=== PATIENT | female | born 1980 | race African-American/Black ===

== ENCOUNTER 2016-08-05 10:37 | Emergency (ER) | payer OTHER ==
[~2016-08-05] VITALS: Ht 175.3 cm; Wt 66.7 kg
[~2016-08-05 10:37] MED LIST: CEPH-264 PO; FLUC150T PO
[2016-08-05] MEDS ORDERED: LIDO:MAALOX:DONNATAL 1:1:1 15 ML SINGLE DOSE SWSW ONE (11:45)
[2016-08-05] MEDS ORDERED: ONDANSETRON PF 4 MG/2 ML VIAL. IV ONE (11:45)
[2016-08-05] MEDS ORDERED: IV NORMAL SALINE 1000ML BAG 1,000 ML IV ONE (11:45)
[2016-08-05] MEDS ORDERED: FAMOTIDINE 20 MG/2 ML VIAL IVP ONE (11:45)
[2016-08-05 11:58] LABS: BASO % 1 % (0-3); EOS % 4 % (0-3); HEMATOCRIT 37.4 % (36.0-47.0); HEMOGLOBIN 12.9 g/dL (12.0-15.5); LYMPH # 1.2 x10^3/uL (1.0-4.8); LYMPH % 31 % (24-48); MEAN CORPUSCULAR HEMOGLOBIN 31 pg (25-35); MEAN CORPUSCULAR HGB CONC 35 g/dL (31-37); MEAN CORPUSCULAR VOLUME 89 fL (79-100); MONO % 13 % (0-9); NEUT % 51 % (31-73); PLATELET COUNT 313 x10^3/uL (140-400); RED BLOOD COUNT 4.19 x10^6/uL (3.50-5.40); RED CELL DISTRIBUTION WIDTH 13.2 % (11.5-14.5); WHITE BLOOD COUNT 3.8 x10^3/uL (4.0-11.0)
[2016-08-05 11:59] LABS: CALCIUM 9.2 mg/dL (8.5-10.1); CREATININE 0.8 mg/dL (0.6-1.0); GFR 98.2; POTASSIUM 3.7 mmol/L (3.5-5.1)
[2016-08-05 12:04] LABS: BILIRUBIN,URINE NEGATIVE (NEG); GLUCOSE,URINE NEGATIVE (NEG); NITRITE,URINE NEGATIVE (NEG); UROBILINOGEN,URINE 0.2 mg/dL (0.2 mg/dL)
[2016-08-05 12:05] LABS: ALBUMIN 3.9 g/dL (3.4-5.0); ALBUMIN/GLOBULIN RATIO 0.9 (1.0-1.7); TOTAL BILIRUBIN 0.6 mg/dL (0.2-1.0); TOTAL PROTEIN 8.3 g/dL (6.4-8.2)
[2016-08-05 12:05] LABS: NEG OBC UR NEG; POS OBC UR POS
[2016-08-05 12:15] LABS: PROTEIN,URINE NEGATIVE (NEG-TRACE)
[2016-08-05 12:16] LABS: BACTERIA,URINE 0 /HPF (0-FEW); SQUAMOUS EPITHELIAL CELL,UR MOD /LPF; WBC,URINE OCC /HPF (0-4)
--- NOTE | 2016-08-05 12:50 | ACF ---
Admission Forms Criteria Admission Criteria Met?: Yes ROSA PEREZ Aug 05, 2016 12:50
[2016-08-05 14:15] VITALS: BP 94/52
[2016-08-05] MEDS ORDERED: ONDA4TAB10 SL (14:31)
[2016-08-05] MEDS ORDERED: ESOM40CA PO (14:31)
--- NOTE | 2016-08-05 14:31 | PHYS DOC ---
Past Medical History Past Medical History: GERD Past Surgical History: Tonsillectomy Alcohol Use: Occasionally Drug Use: None Adult General Chief Complaint Chief Complaint: ABDOMINAL PAIN HPI HPI Patient is a 36 year old female with history of acid reflex presents today with midepigastric abdominal pain chronic in nature but got worse in the last 24 hours. Patient is also complaining of nausea and feeling gassy. Patient denies any constipation. She states she took Nexium and Prevacid with no relief. She states she used to follow-up with GI but has not seen a GI doctor for a long time. Patient denies any chance she is constipated. Denies any chance she is . Denies any urgency frequency or dysuria. Review of Systems Review of Systems Constitutional: Denies fever or chills [] Eyes: Denies change in visual acuity, redness, or eye pain [] HENT: Denies nasal congestion or sore throat [] Respiratory: Denies cough or shortness of breath [] Cardiovascular: No additional information not addressed in HPI [] GI: Midepigastric abdominal pain nausea,] : See history of present illness Musculoskeletal: Denies back pain or joint pain [] Integument: Denies rash or skin lesions [] Neurologic: Denies headache, focal weakness or sensory changes [] Endocrine: Denies polyuria or polydipsia [] Current Medications Current Medications Current Medications Medications (Trade) Dose Ordered Sig/Mejia Start Time Stop Time Status Last Admin Dose Admin Famotidine (Pepcid) 20 mg 1X ONCE 08/05/16 11:45 08/05/16 11:48 DC 08/05/16 12:21 20 MG Multi-Ingredient Mouthwash/Gargle (Gi Cocktail Single Dose) 15 ml 1X ONCE 08/05/16 11:45 08/05/16 11:48 DC 08/05/16 12:22 15 ML Ondansetron HCl 4 mg 4 mg 1X ONCE 08/05/16 11:45 08/05/16 11:48 DC 08/05/16 12:22 4 MG Sodium Chloride (Iv Sodium Chloride 0.9% 1000ml Bag) 1,000 ml @ 1,000 mls/hr 1X ONCE 08/05/16 11:45 08/05/16 12:44 DC 08/05/16 12:22 1,000 MLS/HR Allergies Allergies Allergies Coded Allergies Type Severity Reaction Last Updated Verified codeine Allergy Intermediate Itching. 02/26/16 Yes sulfamethoxazole Adverse Reaction Intermediate Causes Yeast infection. 02/26/16 Yes trimethoprim Adverse Reaction Intermediate Causes Yeast infection. 02/26/16 Yes Physical Exam Physical Exam Constitutional: Well developed, well nourished, no acute distress, non-toxic appearance. [] HENT: Normocephalic, atraumatic, bilateral external ears normal, oropharynx moist, no oral exudates, nose normal. [] Eyes: PERRLA, EOMI, conjunctiva normal, no discharge. [] Neck: Normal range of motion, no tenderness, supple, no stridor. [] Cardiovascular:Heart rate regular rhythm, no murmur [] Lungs & Thorax: Bilateral breath sounds clear to auscultation [] Abdomen: Bowel sounds normal, soft, mild mid epigastric tenderness, no masses, no pulsatile masses. No right upper, right lower quadrant tenderness on exam Skin: Warm, dry, no erythema, no rash. [] Back: No tenderness, no CVA tenderness. [] Extremities: No tenderness, no cyanosis, no clubbing, ROM intact, no edema. [] Neurologic: Alert and oriented X 3, normal motor function, normal sensory function, no focal deficits noted. [] Psychologic: Affect normal, judgement normal, mood normal. [] Current Patient Data Vital Signs Vital Signs Date Time Temp Pulse Resp B/P Pulse Ox O2 Delivery O2 Flow Rate FiO2 08/05/16 13:15 84 16 109/69 100 Room Air 08/05/16 11:15 98.2 98.2 Lab Values Laboratory Tests Test 08/05/16 11:20 08/05/16 11:30 Urine Collection Type Unknown Urine Color Yellow Urine Clarity Cloudy Urine pH 7.0 Urine Specific [place] 1.015 Urine Protein Negativemg/dL (NEG-TRACE) Urine Glucose (UA) Negativemg/dL (NEG) Urine Ketones (Stick) Negativemg/dL (NEG) Urine Blood Large (NEG) Urine Nitrite Negative (NEG) Urine Bilirubin Negative (NEG) Urine Urobilinogen Dipstick 0.2mg/dL (0.2 mg/dL) Urine Leukocyte Esterase Trace (NEG) Urine RBC 11-20/HPF (0-2) Urine WBC Occ/HPF (0-4) Urine Squamous Epithelial Cells Mod/LPF Urine Bacteria 0/HPF (0-FEW) Urine Mucus Mod/LPF Urine Test Negative (NEG) White Blood Count 3.8x10^3/uL (4.0-11.0) L Red Blood Count 4.19x10^6/uL (3.50-5.40) Hemoglobin 12.9g/dL (12.0-15.5) Hematocrit 37.4% (36.0-47.0) Mean Corpuscular Volume 89fL (79-100) Mean Corpuscular Hemoglobin 31pg (25-35) Mean Corpuscular Hemoglobin Concent 35g/dL (31-37) Red Cell Distribution Width 13.2% (11.5-14.5) Platelet Count 313x10^3/uL (140-400) Neutrophils (%) (Auto) 51% (31-73) Lymphocytes (%) (Auto) 31% (24-48) Monocytes (%) (Auto) 13% (0-9) H Eosinophils (%) (Auto) 4% (0-3) H Basophils (%) (Auto) 1% (0-3) Neutrophils # (Auto) 2.0x10^3uL (1.8-7.7) Lymphocytes # (Auto) 1.2x10^3/uL (1.0-4.8) Monocytes # (Auto) 0.5x10^3/uL (0.0-1.1) Eosinophils # (Auto) 0.2x10^3/uL (0.0-0.7) Basophils # (Auto) 0.0x10^3/uL (0.0-0.2) Sodium Level 139mmol/L (136-145) Potassium Level 3.7mmol/L (3.5-5.1) Chloride Level 103mmol/L (98-107) Carbon Dioxide Level 26mmol/L (21-32) Anion Gap 10 (6-14) Blood Urea Nitrogen 9mg/dL (7-20) Creatinine 0.8mg/dL (0.6-1.0) Estimated GFR (Cockcroft-Gault) 98.2 BUN/Creatinine Ratio 11 (6-20) Glucose Level 94mg/dL (70-99) Calcium Level 9.2mg/dL (8.5-10.1) Total Bilirubin 0.6mg/dL (0.2-1.0) Aspartate Amino Transferase (AST) 28U/L (15-37) Alanine Aminotransferase (ALT) 30U/L (14-59) Alkaline Phosphatase 136U/L (46-116) H Total Protein 8.3g/dL (6.4-8.2) H Albumin 3.9g/dL (3.4-5.0) Albumin/Globulin Ratio 0.9 (1.0-1.7) L Lipase 136U/L (73-393) Laboratory Tests 08/05/16 11:30 Laboratory Tests 08/05/16 11:30 EKG EKG [] Radiology/Procedures Radiology/Procedures [] Course & Med Decision Making Course & Med Decision Making Pertinent Labs and Imaging studies reviewed. (See chart for details) Patient is in the ED with exacerbation of chronic acid reflex with midepigastric abdominal pain. Negative urine hCG, UA negative for infection, CBC with a WBC of 3.8, CMP with alkaline phosphatase of 136. Patient is in no distress. She has history of acid reflex, I recommended she follows up with GI which i provided name and contact information for. Encouraged her to continue taking Nexium. Discharge her with Zofran as needed. She was given 1 L of IV fluid famotidine and GI cocktail in the ED with good relief of her symptoms. She was provided return precautions and discharged in stable condition. Dragon Disclaimer Dragon Disclaimer This electronic medical record was generated, in whole or in part, using a voice recognition dictation system. Departure Departure Impression: Primary Impression: GERD (gastroesophageal reflux disease) Disposition: 01 HOME, SELF-CARE Condition: STABLE Referrals: FERNANDO FLOWER MD (PCP) SHANNA MANCINI MD see him in one to three days Patient Instructions: Diet for Gastroesophageal Reflux Disease, Adult, Easy-to- Read Additional Instructions: You were seen for chronic acid reflex, continue taking Nexium. Take the provided nausea medicine as needed. Avoid fatty greasy foods. Avoid spicy foods. Follow-up with the provided GI doctor as soon as possible. Come back to the emergency room if symptoms worsen. Scripts Ondansetron (Zofran Odt)4 Mg Tab.rapdis1 Tab SL Q8HRS #15 TAB Prov:KUNAL FOX APRN 08/05/16 Esomeprazole Magnesium (Nexium Capsule)40 Mg Capsule.dr1 Cap PO DAILY #30 CAP Ref 5 Prov:KUNAL FOX DICE TABLE PERSON 08/05/16 Problem Qualifiers Primary Impression: GERD (gastroesophageal reflux disease) Esophagitis presence: esophagitis presence not specified Qualified Code: K21.9 - Gastro-esophageal reflux disease without esophagitis KUNAL FOX DICE TABLE PERSON Aug 05, 2016 14:31
== END 2016-08-05 14:45 | disposition home or self-care (01) ==
LOC: ER 10:37
DX: K21.9 Gastro-esophageal reflux disease without esophagitis (principal); Z88.1 Allergy status to other antibiotic agents; Z88.5 Allergy status to narcotic agent
CPT/HCPCS: 36415; 80053; 81001; 81025; 83690; 85027; 96361; 96374; 96375; 99284; J2405; J7030; S0028

== ENCOUNTER → 2016-10-07 | Outpatient (CLI) | payer OTHER ==
[~2016-10-07] MED LIST changes: +ESOM40CA PO; +HYDR-2678 PO; +ONDA4TAB10 SL
--- NOTE | 2016-10-07 16:43 | RAD ---
Indication: Palpable abnormality. Technique: Targeted ultrasound of the area of concern was performed. No comparison is available. Findings: Oval-shaped mass measures 16 x 16 x 6 mm in size at the area of concern. This is slightly more hyperechoic than the adjacent fat. It demonstrates no color flow. Impression: Oval-shaped mass at the area of concern, imaging characteristics most suggestive of lipoma.
[2016-10-14 10:32] VITALS: BP 104/70
== END | disposition home or self-care (01) ==
LOC: US 13:57
PROVIDERS: ATTEND Internal Medicine
DX: R22.1 Localized swelling, mass and lump, neck (principal)
CPT/HCPCS: 76536

== ENCOUNTER 2016-10-12 04:09 | Inpatient (IN) | payer OTHER ==
[~2016-10-12] VITALS: Ht 175.3 cm; Wt 65.8 kg
[~2016-10-12 04:09] MED LIST changes: -HYDR-2678 PO
[2016-10-12 05:10] LABS: BASO % 1 % (0-3); EOS % 5 % (0-3); HEMATOCRIT 37.4 % (36.0-47.0); HEMOGLOBIN 12.4 g/dL (12.0-15.5); LYMPH % 20 % (24-48); MEAN CORPUSCULAR HEMOGLOBIN 30 pg (25-35); MEAN CORPUSCULAR HGB CONC 33 g/dL (31-37); MEAN CORPUSCULAR VOLUME 89 fL (79-100); MONO % 10 % (0-9); NEUT % 65 % (31-73); PLATELET COUNT 360 x10^3/uL (140-400); RED BLOOD COUNT 4.19 x10^6/uL (3.50-5.40); RED CELL DISTRIBUTION WIDTH 13.1 % (11.5-14.5); WHITE BLOOD COUNT 5.2 x10^3/uL (4.0-11.0)
[2016-10-12 05:10] LABS: BILIRUBIN,URINE NEGATIVE (NEG); GLUCOSE,URINE NEGATIVE (NEG); NITRITE,URINE NEGATIVE (NEG); PROTEIN,URINE 30 mg/dL (NEG-TRACE)
[2016-10-12] MEDS: FENTANYL PF 100 MCG/2 ML VIAL. IV PRN ×3 (05:11→23:29)
[2016-10-12 05:23] LABS: CALCIUM 9.3 mg/dL (8.5-10.1); CREATININE 0.8 mg/dL (0.6-1.0); GFR 98.2; POTASSIUM 3.7 mmol/L (3.5-5.1)
[2016-10-12 05:25] LABS: BACTERIA,URINE MODERATE /HPF (0-FEW); SQUAMOUS EPITHELIAL CELL,UR MOD /LPF
[2016-10-12] MEDS ORDERED: IV NORMAL SALINE 1000ML BAG 1,000 ML IV SCH (05:30)
[2016-10-12] MEDS ORDERED: KETOROLAC TROMETHAMINE 30 MG/ML SYRINGE. IV ONE (05:30)
[2016-10-12] MEDS ORDERED: DIPHENHYDRAMINE 50 MG/ML VIAL IVP ONE (05:30)
[2016-10-12] MEDS ORDERED: ONDANSETRON PF 4 MG/2 ML VIAL. IV ONE (05:30)
--- NOTE | 2016-10-12 05:31 | RAD ---
Abdominal ultrasound right upper quadrant: Reason for examination: Right upper quadrant pain with elevated liver function test. No abnormalities seen in the pancreas. The inferior vena cava shows no abnormality. The liver is homogeneous without a focal lesion. Liver measures approximately 15.3 centimeters in greatest dimension. Gallbladder shows no cholelithiasis, sludge or wall thickening. Common bile duct is normal in caliber at 2.9 millimeters. The right kidney measures 12 x 4.5 centimeters in greatest dimensions and shows normal cortical medullary differentiation and no hydronephrosis or mass. Impression: No acute abnormality evident in the right upper quadrant of the abdomen. Electronically signed by: Rupal Moore MD (Oct 12, 2016 05:29:54)
[2016-10-12 05:32] LABS: ALBUMIN 3.4 g/dL (3.4-5.0); ALBUMIN/GLOBULIN RATIO 0.7 (1.0-1.7); TOTAL BILIRUBIN 0.8 mg/dL (0.2-1.0); TOTAL PROTEIN 8.5 g/dL (6.4-8.2)
[2016-10-12 05:49] LABS: BARBITURATES NEG (NEG); BENZODIAZEPINES NEG (NEG); CANNABINOIDS POS (NEG); COCAINE NEG (NEG); METHADONE NEG (NEG); OPIATES NEG (NEG); PHENCYCLIDINE NEG (NEG)
[2016-10-12 05:58] LABS: ETHANOL, URINE NEG (NEG)
--- NOTE | 2016-10-12 06:18 | EKG ---
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
[2016-10-12] MEDS ORDERED: ONDANSETRON PF 4 MG/2 ML VIAL. IV PRN (06:45)
[2016-10-12] MEDS ORDERED: ACETAMINOPHEN 325 MG TABLET. PO PRN (06:45)
--- NOTE | 2016-10-12 07:09 | RAD ---
Chest, 2 views, 10/12/2016: History: Shortness of breath The heart size is normal. The lungs are clear. There is no evidence of pleural fluid. IMPRESSION: No acute cardiopulmonary abnormality is detected.
--- NOTE | 2016-10-12 08:12 | ED.ADGEN ---
Past Medical History Past Medical History: GERD Past Surgical History: Tonsillectomy Alcohol Use: Occasionally Drug Use: None Adult General Chief Complaint Chief Complaint: SKIN PROBLEM HPI HPI Patient is a 36 year old woman, is treated GERD, who presents to the emergency department with multiple complaints. Patient was seen last week by her primary care provider, Dr. Flower, with a complaint of abdominal pain, and "welts", that developed on her arms and legs. Patient received blood work, and was given instructions to receive an outpatient "scan", of the right upper quadrant for evaluation of elevated LFTs. Patient states she's been expressing fever at home, chills, body aches, itching and red rash on forearms and legs, is concerned for sarcoid, which runs in her family, although she does not have laboratory results back at this time. Patient also states she is experiencing nausea and vomiting, and right upper quadrant abdominal pain which is been coming and going over the past several days. Patient states that she feels " just terrible". States that due to her symptoms worsening tonight, she could not wait to have the outpatient studies performed and to follow-up with her primary care provider. Patient's mother is present at bedside. No recent travel or surgery, no history of DVT or PE, no camping, or outdoor exposure, no insect or tick bites, no Review of Systems Review of Systems Constitutional: Generalized malaise, fever and chills. Eyes: Denies change in visual acuity. [] HENT: Denies nasal congestion or sore throat. [] Respiratory: Denies cough or shortness of breath. [] Cardiovascular: Denies chest pain or edema. [] GI: Thibodeaux requirement abdominal pain, nausea, vomiting, no bloody stools or diarrhea. : Denies dysuria. [] Musculoskeletal: Denies back pain or joint pain. [] Integument: Rash on forearms and legs. Neurologic: Denies headache, focal weakness or sensory changes. [] Endocrine: Denies polyuria or polydipsia. [] Lymphatic: Denies swollen glands. [] Psychiatric: Denies depression or anxiety. [] Current Medications Current Medications Current Medications Medications (Trade) Dose Ordered Sig/Mejia Start Time Stop Time Status Last Admin Dose Admin Diphenhydramine HCl (Benadryl) 25 mg 1X ONCE 10/12/16 05:30 10/12/16 05:31 DC 10/12/16 05:10 25 MG Fentanyl Citrate 25 mcg 25 mcg PRN Q15MIN PRN 10/12/16 05:00 10/13/16 04:59 10/12/16 05:11 25 MCG Ketorolac Tromethamine (Toradol) 10 mg 1X ONCE 10/12/16 05:30 10/12/16 05:31 DC 10/12/16 05:12 10 MG Ondansetron HCl (Zofran) 4 mg 1X ONCE 10/12/16 05:30 10/12/16 05:31 DC 10/12/16 05:10 4 MG Sodium Chloride (Iv Sodium Chloride 0.9% 1000ml Bag) 1,000 ml @ 1,000 mls/hr Q1H 10/12/16 05:30 10/12/16 06:29 DC 10/12/16 05:10 1,000 MLS/HR Allergies Allergies Allergies Coded Allergies Type Severity Reaction Last Updated Verified Penicillins Allergy Intermediate 10/12/16 Yes codeine Allergy Intermediate Itching. 02/26/16 Yes sulfamethoxazole Adverse Reaction Intermediate Causes Yeast infection. 02/26/16 Yes trimethoprim Adverse Reaction Intermediate Causes Yeast infection. 02/26/16 Yes Physical Exam Physical Exam Constitutional: Well developed, well nourished, no acute distress, non-toxic appearance. [] HENT: Normocephalic, atraumatic, bilateral external ears normal, oropharynx moist, no oral exudates, nose normal. [] Eyes: PERRLA, EOMI, conjunctiva normal, no discharge. [] Neck: Normal range of motion, no tenderness, supple, no stridor. [] Cardiovascular:Heart rate regular rhythm, no murmur , S1, S2, mildly tachycardic. No rubs or gallops. [] Lungs & Thorax: Bilateral breath sounds clear to auscultation, no wheezing, rhonchi, rales. No chest wall tenderness or crepitus. [] Abdomen: Bowel sounds normal, soft, tenderness to palpation in the right upper quadrant, no rebound, rigidity, no guarding, no masses, no pulsatile masses. [] Skin: Warm, dry, no erythema, patient with well-circumscribed neck or rash on the left forearm, healing rash on the calf. No target lesions, no abscess, no induration or swelling. No lymphangitis. Back: No tenderness, no CVA tenderness. [] Extremities: No tenderness, no cyanosis, no clubbing, ROM intact, no edema. [] Neurologic: Alert and oriented X 3, normal motor function, normal sensory function, no focal deficits noted. [] Psychologic: Affect normal, judgement normal, mood normal. [] Current Patient Data Vital Signs Vital Signs Date Time Temp Pulse Resp B/P Pulse Ox O2 Delivery O2 Flow Rate FiO2 10/12/16 06:04 127/82 10/12/16 05:11 16 Room Air 10/12/16 04:41 98.5 103 100 98.5 Lab Values Laboratory Tests Test 10/12/16 03:26 10/12/16 04:20 10/12/16 04:36 POC Urine HCG, Qualitative Hcg negative (Negative) Urine Collection Type Unknown Urine Color Yellow Urine Clarity Clear Urine pH 7.0 Urine Specific [place] 1.015 Urine Protein 30mg/dL (NEG-TRACE) Urine Glucose (UA) Negativemg/dL (NEG) Urine Ketones (Stick) Negativemg/dL (NEG) Urine Blood Moderate (NEG) Urine Nitrite Negative (NEG) Urine Bilirubin Negative (NEG) Urine Urobilinogen Dipstick 1.0mg/dL (0.2 mg/dL) Urine Leukocyte Esterase Negative (NEG) Urine RBC 6-10/HPF (0-2) Urine WBC 5-10/HPF (0-4) Urine Squamous Epithelial Cells Mod/LPF Urine Bacteria Moderate/HPF (0-FEW) Urine Hyaline Casts Few/HPF Urine Mucus Marked/LPF Urine Opiates Screen Neg (NEG) Urine Methadone Screen Neg (NEG) Urine Barbiturates Neg (NEG) Urine Phencyclidine Screen Neg (NEG) Urine Amphetamine/Methamphetamine Neg (NEG) Urine Benzodiazepines Screen Neg (NEG) Urine Cocaine Screen Neg (NEG) Urine Cannabinoids Screen Pos (NEG) Urine Ethyl Alcohol Neg (NEG) White Blood Count 5.2x10^3/uL (4.0-11.0) Red Blood Count 4.19x10^6/uL (3.50-5.40) Hemoglobin 12.4g/dL (12.0-15.5) Hematocrit 37.4% (36.0-47.0) Mean Corpuscular Volume 89fL (79-100) Mean Corpuscular Hemoglobin 30pg (25-35) Mean Corpuscular Hemoglobin Concent 33g/dL (31-37) Red Cell Distribution Width 13.1% (11.5-14.5) Platelet Count 360x10^3/uL (140-400) Neutrophils (%) (Auto) 65% (31-73) Lymphocytes (%) (Auto) 20% (24-48) L Monocytes (%) (Auto) 10% (0-9) H Eosinophils (%) (Auto) 5% (0-3) H Basophils (%) (Auto) 1% (0-3) Neutrophils # (Auto) 3.4x10^3uL (1.8-7.7) Lymphocytes # (Auto) 1.0x10^3/uL (1.0-4.8) Monocytes # (Auto) 0.5x10^3/uL (0.0-1.1) Eosinophils # (Auto) 0.3x10^3/uL (0.0-0.7) Basophils # (Auto) 0.0x10^3/uL (0.0-0.2) Sodium Level 137mmol/L (136-145) Potassium Level 3.7mmol/L (3.5-5.1) Chloride Level 98mmol/L (98-107) Carbon Dioxide Level 25mmol/L (21-32) Anion Gap 14 (6-14) Blood Urea Nitrogen 11mg/dL (7-20) Creatinine 0.8mg/dL (0.6-1.0) Estimated GFR (Cockcroft-Gault) 98.2 BUN/Creatinine Ratio 14 (6-20) Glucose Level 114mg/dL (70-99) H Calcium Level 9.3mg/dL (8.5-10.1) Total Bilirubin 0.8mg/dL (0.2-1.0) Aspartate Amino Transferase (AST) 75U/L (15-37) H Alanine Aminotransferase (ALT) 77U/L (14-59) H Alkaline Phosphatase 330U/L (46-116) H Total Protein 8.5g/dL (6.4-8.2) H Albumin 3.4g/dL (3.4-5.0) Albumin/Globulin Ratio 0.7 (1.0-1.7) L Lipase 118U/L (73-393) Laboratory Tests 10/12/16 04:36 Laboratory Tests 10/12/16 04:36 EKG EKG EC: Sinus rhythm, heart rate 91 beats/minute, upright axis, QTC of 437, NE 138, QRS is 74. No ST elevations or depressions, no evidence of acute ST abnormalities. As interpreted by me. [] Radiology/Procedures Radiology/Procedures [] [facility] [address] [place] [address] IMAGING REPORT Signed PATIENT: SHEY SERRANO ACCOUNT: [id number] : 1980 LOCATION: ER AGE: 36 SEX: F EXAM STATUS: REG ER ORD. PHYSICIAN: MARQUIS MUSE DO REASON: RUQ pain/elevated LFTs PROCEDURE: ABDOMEN LTD Abdominal ultrasound right upper quadrant: Reason for examination: Right upper quadrant pain with elevated liver function test. No abnormalities seen in the pancreas. The inferior vena cava shows no abnormality. The liver is homogeneous without a focal lesion. Liver measures approximately 15.3 centimeters in greatest dimension. Gallbladder shows no cholelithiasis, sludge or wall thickening. Common bile duct is normal in caliber at 2.9 millimeters. The right kidney measures 12 x 4.5 centimeters in greatest dimensions and shows normal cortical medullary differentiation and no hydronephrosis or mass. Impression: No acute abnormality evident in the right upper quadrant of the abdomen. Electronically signed by: Rupal Encinas MD (Oct 12, 2016 05:29:54) DICTATED and SIGNED BY: ILSA ENCINAS MD DATE: 10/12/16528 CC: MARQUIS MUSE DO; RONNA FLOWER MD ~ Impressions: [facility] [address] [place], [place] [id number] IMAGING REPORT Signed PATIENT: SHEY SERRANO ACCOUNT: [id number] : 1980 LOCATION: ER AGE: 36 SEX: F EXAM STATUS: REG ER ORD. PHYSICIAN: MARQUIS MUSE DO REASON: SHORT OF BREATH PROCEDURE: CHEST PA & LATERAL Chest, 2 views, 10/12/2016: History: Shortness of breath The heart size is normal. The lungs are clear. There is no evidence of pleural fluid. IMPRESSION: No acute cardiopulmonary abnormality is detected. DICTATED and SIGNED BY: ELISHA LE MD DATE: 10/12/16 0704 CC: MARQUIS MUSE DO; RONNA FLOWER MD ~ Course & Med Decision Making Course & Med Decision Making Pertinent Labs and Imaging studies reviewed. (See chart for details) Patient is afebrile in the emergency department. Patient with one episode of emesis in the emergency room, received Benadryl for itching, Toradol, IV fluids , Zofran, and fentanyl. No further vomiting at this time however her pain does persist. Patient is concerned that she may have sarcoidosis, based on family history and the red lesions noted on her forearms. Laboratory studies are pending at this time per her report. Patient patient's report of elevated LFTs, and need for ultrasound, with tenderness right upper quadrant, laboratory studies were ordered along with imaging of the chest and right upper quadrant. Laboratory studies revealed elevated LFTs, with AST elevated the 70s, and an alkaline phosphatase of 3:30, which are elevated from the patient's previous studies performed in July. No other concerning abnormalities were identified. Patient's ultrasound and chest x-ray did not reveal any evidence of concerning findings. I did speak with Dr. Flower, patient's primary care provider, discuss results and presentation as above, patient remains uncomfortable is receiving multiple doses of medication in the emergency department, he requests the patient be admitted to his service as an observation admission, for continued symptom management and evaluation by GI. I discussed this with patient and mother bedside, patient is resting more comfortable at this time, but is agreeable to plan for admission, observation, additional evaluation with GI. Bridge orders entered per discussion, consultation placed for Dr. Elliott. Sylvia Disclaimer Dragoli Disclaimer This electronic medical record was generated, in whole or in part, using a voice recognition dictation system. Departure Impression: Primary Impression: GERD (gastroesophageal reflux disease) Additional Impressions: Abdominal pain Rash Nausea and vomiting Disposition: ADMITTED INPATIENT Admitting Physician: Ronna Flower Condition: IMPROVED Problem Qualifiers MARQUIS MUSE DO Oct 12, 2016 08:11
[2016-10-12 08:17] VITALS: BP 93/63
[2016-10-12] MEDS: IV NORMAL SALINE 1000ML BAG 1,000 ML IV SCH ×3 (08:43→20:55)
--- NOTE | 2016-10-12 09:06 | PDOC2 ---
GI CONSULT Reason For Consult: Abdominal pain HPI: HPI: 36 y/o AA female admitted through the ER. She reports a h/o GERD for years w/ epigastric burning, bloating,n/v, and regurgitation. Symptoms have been worse for about 1 year. Symptoms are worse after eating. Occasionally pain radiates to right shoulder. She has lost ~30 pounds over the past year as a result. She takes Nexium Q a.m. which unfortunately does not control her symptoms. Also uses Tums PRN. Previous workup in 2010: unrevealing EGD except for non- erosive gastritis, normal PIPIDA w/ normal GB EF. For the past 2 weeks, she has also had additional symptoms including itchy rash/welts (face, leg, now arms ), intermittent fever (up to 101 at home), and drenching night sweats. Denies travel, insect bites, sick contacts. Occasional NSAID use (lately about QOD). Occasional constipation improved w/ increased water intake, occasional bilious vomiting, and occasional greenish stools. Saw her PCP last week, was prescribed a cream, told her liver enzymes were elevated, and advised to have outpatient imaging. In the ER, labs significant for normal WBC, normal bilirubin and lipase, AST 75, ALT 77, Alk Phos 330, UA w/ blood and bacteria, and tox screen + cannabinoids. CXR and RUQ US unrevealing. PMH: PMH: GERD, ?pancreatitis, pyelonephritis, tonsillectomy FH: Family History: Other (sarcoidosis) Social History: Smoke: No ALCOHOL: none Drugs: Marijuana ROS: GEN: +fevers/sweats HEENT: Denies blurred vision, sore throat CV: Denies chest pain RESP: Denies shortness of air, cough GI: Per HPI : Denies hematuria, dysuria ENDO: +weight loss NEURO: Denies confusion, dizziness MSK: Denies weakness, joint pain/swelling SKIN: +rash VItals: Vitals: Vital Signs Date Time Temp Pulse Resp B/P Pulse Ox O2 Delivery O2 Flow Rate FiO2 10/12/16 08:17 98.2 79 16 93/63 100 Room Air 98.2 Labs: Labs: Laboratory Tests Test 10/12/16 03:26 10/12/16 04:20 10/12/16 04:36 Bedside Urine HCG, Qualitative Hcg negative (Negative) Urine Collection Type Unknown Urine Color Yellow Urine Clarity Clear Urine pH 7.0 Urine Specific [place] 1.015 Urine Protein 30mg/dL (NEG-TRACE) Urine Glucose (UA) Negativemg/dL (NEG) Urine Ketones (Stick) Negativemg/dL (NEG) Urine Blood Moderate (NEG) Urine Nitrite Negative (NEG) Urine Bilirubin Negative (NEG) Urine Urobilinogen Dipstick 1.0mg/dL (0.2 mg/dL) Urine Leukocyte Esterase Negative (NEG) Urine RBC 6-10/HPF (0-2) Urine WBC 5-10/HPF (0-4) Urine Squamous Epithelial Cells Mod/LPF Urine Bacteria Moderate/HPF (0-FEW) Urine Hyaline Casts Few/HPF Urine Mucus Marked/LPF Urine Opiates Screen Neg (NEG) Urine Methadone Screen Neg (NEG) Urine Barbiturates Neg (NEG) Urine Phencyclidine Screen Neg (NEG) Urine Amphetamine/Methamphetamine Neg (NEG) Urine Benzodiazepines Screen Neg (NEG) Urine Cocaine Screen Neg (NEG) Urine Cannabinoids Screen Pos (NEG) Urine Ethyl Alcohol Neg (NEG) White Blood Count 5.2x10^3/uL (4.0-11.0) Red Blood Count 4.19x10^6/uL (3.50-5.40) Hemoglobin 12.4g/dL (12.0-15.5) Hematocrit 37.4% (36.0-47.0) Mean Corpuscular Volume 89fL (79-100) Mean Corpuscular Hemoglobin 30pg (25-35) Mean Corpuscular Hemoglobin Concent 33g/dL (31-37) Red Cell Distribution Width 13.1% (11.5-14.5) Platelet Count 360x10^3/uL (140-400) Neutrophils (%) (Auto) 65% (31-73) Lymphocytes (%) (Auto) 20% (24-48) Monocytes (%) (Auto) 10% (0-9) Eosinophils (%) (Auto) 5% (0-3) Basophils (%) (Auto) 1% (0-3) Neutrophils # (Auto) 3.4x10^3uL (1.8-7.7) Lymphocytes # (Auto) 1.0x10^3/uL (1.0-4.8) Monocytes # (Auto) 0.5x10^3/uL (0.0-1.1) Eosinophils # (Auto) 0.3x10^3/uL (0.0-0.7) Basophils # (Auto) 0.0x10^3/uL (0.0-0.2) Sodium Level 137mmol/L (136-145) Potassium Level 3.7mmol/L (3.5-5.1) Chloride Level 98mmol/L (98-107) Carbon Dioxide Level 25mmol/L (21-32) Anion Gap 14 (6-14) Blood Urea Nitrogen 11mg/dL (7-20) Creatinine 0.8mg/dL (0.6-1.0) Estimated GFR (Cockcroft-Gault) 98.2 BUN/Creatinine Ratio 14 (6-20) Glucose Level 114mg/dL (70-99) Calcium Level 9.3mg/dL (8.5-10.1) Total Bilirubin 0.8mg/dL (0.2-1.0) Aspartate Amino Transf (AST/SGOT) 75U/L (15-37) Alanine Aminotransferase (ALT/SGPT) 77U/L (14-59) Alkaline Phosphatase 330U/L (46-116) Total Protein 8.5g/dL (6.4-8.2) Albumin 3.4g/dL (3.4-5.0) Albumin/Globulin Ratio 0.7 (1.0-1.7) Lipase 118U/L (73-393) Allergies: Coded Allergies: Penicillins (Verified Allergy, Intermediate, 10/12/16) codeine (Verified Allergy, Intermediate, Itching., 02/26/16) sulfamethoxazole (Verified Adverse Reaction, Intermediate, Causes Yeast infection., 02/26/16) trimethoprim (Verified Adverse Reaction, Intermediate, Causes Yeast infection., 02/26/16) Medications: Current Medications Medications (Trade) Dose Ordered Sig/Mejia Route PRN Reason Start Time Stop Time Status Last Admin Dose Admin Fentanyl Citrate 25 mcg 25 mcg PRN Q15MIN PRN IV PAIN GREATER THAN 10/0210/12/16 05:00 10/13/16 04:59 10/12/16 05:11 Sodium Chloride (Iv Sodium Chloride 0.9% 1000ml Bag) 1,000 ml @ 1,000 mls/hr Q1H IV 10/12/16 05:30 10/12/16 06:29 DC 10/12/16 05:10 Ondansetron HCl (Zofran) 4 mg 1X ONCE IV 10/12/16 05:30 10/12/16 05:31 DC 10/12/16 05:10 Ketorolac Tromethamine (Toradol) 10 mg 1X ONCE IV 10/12/16 05:30 10/12/16 05:31 DC 10/12/16 05:12 Diphenhydramine HCl (Benadryl) 25 mg 1X ONCE IVP 10/12/16 05:30 10/12/16 05:31 DC 10/12/16 05:10 Imaging: Imaging: CXR 10/12/16 IMPRESSION: No acute cardiopulmonary abnormality is detected. RUQ US 10/12/16 No abnormalities seen in the pancreas. The inferior vena cava shows no abnormality. The liver is homogeneous without a focal lesion. Liver measures approximately 15.3 centimeters in greatest dimension. Gallbladder shows no cholelithiasis, sludge or wall thickening. Common bile duct is normal in caliber at 2.9 millimeters. The right kidney measures 12 x 4.5 centimeters in greatest dimensions and shows normal cortical medullary differentiation and no hydronephrosis or mass. Impression: No acute abnormality evident in the right upper quadrant of the abdomen. PIPIDA 08/01/10 Normal w/ GB EF of 75%. EGD 08/08/[address] Elliott Normal esophagus, non-erosive gastritis, and normal duodenum. PE: GEN: NAD HEENT: Atraumatic, PERRL LUNGS: CTAB anteriorly HEART: RRR ABD: BS+, soft, non-distended, epigastric tenderness to RUQ - some around to right flank EXTREMITY: No edema SKIN: seems resolving areas of redness on face and right leg, round erythematous somewhat warm area left bicep region, also on right forearm to hand /ring-finger, some swelling NEURO/PSYCH: A & O 3 A/P: A/P: GERD -w/ chronic abd pain, n/v, regurg, bloating -previous EGD and PIPIDA unrevealing, KVNG US this admission unrevealing -on PPI QD and Tums PRN -symptoms worse after eating Weight loss, fevers/night sweats, rash Elevated AST, ALT, Alk Phos FH sarcoidosis -- D/w Dr. Elliott. ?sarcoid, SLE Check labs: Hep panel, PRISCILLA, AMA, ASMA, LYNSEY level, HIV. Check CT A/P. Consult ID. ?liver biopsy later Continue PPI. BRIGITTE LOPEZ Oct 12, 2016 09:06
[2016-10-12] MEDS ORDERED: POLYETHYLENE GLYCOL 3350 17 GM PACKET. PO PRN (09:15)
[2016-10-12] MEDS ORDERED: CALCIUM CARBONATE 500 MG TAB.CHEW PO PRN (09:15)
--- NOTE | 2016-10-12 09:20 | PDOC ---
Infectious Disease Note Vital Sign Vital Signs Vital Signs Date Time Temp Pulse Resp B/P Pulse Ox O2 Delivery O2 Flow Rate FiO2 10/12/16 08:17 98.2 79 16 93/63 100 Room Air 98.2 Labs Lab Laboratory Tests Test 10/12/16 03:26 10/12/16 04:20 10/12/16 04:36 Bedside Urine HCG, Qualitative Hcg negative (Negative) Urine Collection Type Unknown Urine Color Yellow Urine Clarity Clear Urine pH 7.0 Urine Specific [place] 1.015 Urine Protein 30mg/dL (NEG-TRACE) Urine Glucose (UA) Negativemg/dL (NEG) Urine Ketones (Stick) Negativemg/dL (NEG) Urine Blood Moderate (NEG) Urine Nitrite Negative (NEG) Urine Bilirubin Negative (NEG) Urine Urobilinogen Dipstick 1.0mg/dL (0.2 mg/dL) Urine Leukocyte Esterase Negative (NEG) Urine RBC 6-10/HPF (0-2) Urine WBC 5-10/HPF (0-4) Urine Squamous Epithelial Cells Mod/LPF Urine Bacteria Moderate/HPF (0-FEW) Urine Hyaline Casts Few/HPF Urine Mucus Marked/LPF Urine Opiates Screen Neg (NEG) Urine Methadone Screen Neg (NEG) Urine Barbiturates Neg (NEG) Urine Phencyclidine Screen Neg (NEG) Urine Amphetamine/Methamphetamine Neg (NEG) Urine Benzodiazepines Screen Neg (NEG) Urine Cocaine Screen Neg (NEG) Urine Cannabinoids Screen Pos (NEG) Urine Ethyl Alcohol Neg (NEG) White Blood Count 5.2x10^3/uL (4.0-11.0) Red Blood Count 4.19x10^6/uL (3.50-5.40) Hemoglobin 12.4g/dL (12.0-15.5) Hematocrit 37.4% (36.0-47.0) Mean Corpuscular Volume 89fL (79-100) Mean Corpuscular Hemoglobin 30pg (25-35) Mean Corpuscular Hemoglobin Concent 33g/dL (31-37) Red Cell Distribution Width 13.1% (11.5-14.5) Platelet Count 360x10^3/uL (140-400) Neutrophils (%) (Auto) 65% (31-73) Lymphocytes (%) (Auto) 20% (24-48) Monocytes (%) (Auto) 10% (0-9) Eosinophils (%) (Auto) 5% (0-3) Basophils (%) (Auto) 1% (0-3) Neutrophils # (Auto) 3.4x10^3uL (1.8-7.7) Lymphocytes # (Auto) 1.0x10^3/uL (1.0-4.8) Monocytes # (Auto) 0.5x10^3/uL (0.0-1.1) Eosinophils # (Auto) 0.3x10^3/uL (0.0-0.7) Basophils # (Auto) 0.0x10^3/uL (0.0-0.2) Sodium Level 137mmol/L (136-145) Potassium Level 3.7mmol/L (3.5-5.1) Chloride Level 98mmol/L (98-107) Carbon Dioxide Level 25mmol/L (21-32) Anion Gap 14 (6-14) Blood Urea Nitrogen 11mg/dL (7-20) Creatinine 0.8mg/dL (0.6-1.0) Estimated GFR (Cockcroft-Gault) 98.2 BUN/Creatinine Ratio 14 (6-20) Glucose Level 114mg/dL (70-99) Calcium Level 9.3mg/dL (8.5-10.1) Total Bilirubin 0.8mg/dL (0.2-1.0) Aspartate Amino Transf (AST/SGOT) 75U/L (15-37) Alanine Aminotransferase (ALT/SGPT) 77U/L (14-59) Alkaline Phosphatase 330U/L (46-116) Total Protein 8.5g/dL (6.4-8.2) Albumin 3.4g/dL (3.4-5.0) Albumin/Globulin Ratio 0.7 (1.0-1.7) Lipase 118U/L (73-393) Objective Assessment Feve Wt loss Abd pain Rash Plan Plan of Care workup as ordered no antibiotics HAKAN IBARRA MD Oct 12, 2016 09:20
--- NOTE | 2016-10-12 09:46 | ACF ---
Admit Criteria Forms Admit Criteria Forms Admit Criteria Forms ABDOMINAL PAIN Clinical Indications for Admission to Inpatient Care (Place 'X' for any and all applicable criteria): Admission is indicated for ANY ONE of the following(1)(2)(3)(4)(5): [X]I. Inpatient admission required rather than observation care (Also use Abdominal Pain: Observation Care, as appropriate) because of ANY ONE of the following: [ ]a) Severe pain requiring acute inpatient management [X]b) Identification of etiology/finding that requires inpatient care (eg, aortic dissection, free air) [ ]c) Absent bowel sounds with complete ileus(6) [ ]d) Suspected toxic megacolon [ ]e) Severe electrolyte abnormalities requiring inpatient care [ ]f) High fever or infection requiring inpatient admission as indicated by ANY ONE of following(7)(8): [ ] i) Appropriate outpatient or observational care antimicrobial treatment unavailable, not effective, or not feasible [ ] ii) Documented bacteremia [ ] iii) Temperature > 104.9 degrees F (oral) [ ] iv) T >103.1 F (oral) or < 96.8 F(rectal) that does not respond to all emergency treatment measures [ ]g) Signs of intestinal obstruction [B] [ ]h) Hemodynamic instability [ ]i) IV fluid to replace significant ongoing losses (greater than 3 L/m2 per day) (12)(13) [ ]j) Percutaneous or open drainage (eg, abscess, biliary tract ) procedures [ ]k) Parenteral nutrition regimen that must be implemented on inpatient basis [ ]l) Other condition,treatment or monitoring requiring inpatient admission. [ ]II. Peritoneal signs present [ ]III. Surgery needed that cannot be performed on an ambulatory basis. [ ]IV. Evaluation requires patient to not eat or drink for extended period ( eg, more than 24 hours). [ ]V. Contraindications and/or Inappropriate clinical situations for Observational Care in patients with abdominal pain, when ANY ONE of the following is required: [ ]a) Thorough evaluation is required to prevent catastrophic events due to delays in diagnosing (e.g.Mesenteric ischemia) 1,3 [ ]b) Patient with severe pathology or with chronic symptoms unlikely to improve in the ED stay (3) [ ]. General contraindications and/or Inappropriate clinical situations for Observational Care in patients with abdominal pain, when ANY ONE of the following is required: [ ]a) Prediction of prolongation of LOS based on ANY ONE of the following may be considered as a contraindication for observational care 2, 3, 4, 5, 6, 7, 8, 9, 10, 11 [ ]i) Age > 65 yrs. [ ]ii) Patient arriving by ambulance [ ]iii) Patient with high acuity [ ]iv) Patient requiring vital sign monitoring [ ]v) Patient on IV medication [ ]b) Systolic blood pressures 180mmHg 3,12 [ ]c) Patient with altered mental status including delirium and other alteration of consciousness, (3) [ ]d) Patient whose discharge disposition will be to a [facility] home or rehabilitation home should not be managed in Emergency Department Observation Unit. CMS rule requires 3 days hospital stay before such placement.3,13 [ ]e) Patient with failure to thrive due to broad array of etiologies 3,16,17 [ ]f) Inability to ambulate 3,14 Extended stay beyond goal length of stay may be needed for(2)(3): [ ]a) Persistent abdominal pain with suspected intra-abdominal process [ ]b) Diagnosed condition requiring continued stay (e.g., pancreatitis, complicated diverticulitis) [ ]c) Surgery (e.g., colectomy) The original [email or web address] content created by [email or web address] has been revised. The portions of the content which have been revised are identified through the use of italic text or in bold, and [email or web address] has neither reviewed nor approved the modified material.All other unmodified content is copyright [email or web address]. Please see references footnoted in the original [email or web address] edition 2016 GRACIELA BECK Oct 12, 2016 09:46
--- NOTE | 2016-10-12 10:05 | PDOC ---
Provider Note Provider Note Pt seen.H&P dictated. #[id number] FERNANDO FLOWER MD Oct 12, 2016 10:05
[2016-10-12] MEDS: PANTOPRAZOLE 40 MG TABLET. PO SCH (10:16)
[2016-10-12 10:43] VITALS: BP 107/68
[2016-10-12] MEDS ORDERED: IOHEXOL 300 MG/ML 75 ML VIAL IV ONE (11:15)
[2016-10-12] MEDS ORDERED: IOHEXOL 240 MG/ML 50ML VIAL. PO ONE (11:15)
[2016-10-12 11:17] VITALS: BP 107/68
[2016-10-12] MEDS ORDERED: CONTRAST GIVEN MC PRN (11:30)
[2016-10-12 11:42] LABS: NEGATIVE OBC MYCO NEG; POSITIVE OBC MYCO POS
--- NOTE | 2016-10-12 11:49 | HP ---
ADMIT DATE: 10/12/2016 PATIENT LOCATION: [facility]. REASON FOR ADMISSION TO THE HOSPITAL: Weight lost, feeling weak, skin lesions and elevated liver function tests. HISTORY OF PRESENT ILLNESS: The patient is a 36-year-old female. The patient has been losing weight and she has developing skin lesions, fluctuating on and off. She has abdominal pain, came to the Emergency Room. LFTs were elevated and the patient was admitted to the hospital for further investigation and treatment. PAST MEDICAL HISTORY: She has a history of recently seen in the office, trying to do outpatient workup, had a sonogram of the neck shows some lipoma, ultrasound of the abdomen was unremarkable. Chest x-ray was negative. PAST SURGICAL HISTORY: Tonsillectomy. ALLERGIES: TO PENICILLIN, CODEINE, SULFA AND TRIMETHOPRIM. MEDICATIONS AT HOME: Not much medications, omeprazole. PERSONAL HISTORY: Smoking also marijuana. Denies any street alcohol. FAMILY HISTORY: Mother has sarcoidosis. REVIEW OF SYMPTOMS: Lost close to 20-30 pounds, has fluctuating skin rashes on and off, and feeling tired, fatigued. PHYSICAL EXAMINATION VITAL SIGNS: At the time of admission shows a temperature 98, pulse 102_, respirations 16, blood pressure 109/69, 100% room air. HEENT: Head is atraumatic. Pupils equal. Oral cavity: No congestion. NECK: The patient has some lipoma on the the left side of the neck, over the thyroid area. CHEST: Symmetrical. LUNGS: Clear. ABDOMEN: Soft. EXTREMITIES: No calf tenderness, edema. SKIN: Has an area of purpuric rash over the right upper arm as well as left inner arm and forearm, which is 2 inches in size. LABORATORY DATA: Shows a white count of 5, hemoglobin 12, platelets 360. Electrolytes show sodium 137, potassium 3.7, chloride 98, bicarbonate 25, BUN 11, creatinine 0.8, glucose 114, AST 75, ALT 77, alkaline phosphatase 330, total protein 8.5. Urine was negative. test was negative. Chest x-ray, no acute abnormality. Ultrasound of the abdomen was no acute abnormality. FINAL IMPRESSION: 1. Significant weight loss.? connective tissue disease or immune disease 2. Purpuric lesions in the skin. 3. Family history of sarcoidosis. 4. Elevated liver function tests. PLAN: At this time, CT of the chest, abdomen and pelvis. GI was consulted. We have Dermatology as well as Rheumatology consult is if dealing with any connective tissue diseases or immune mediated disease. FERNANDO FLOWER MD DR: ALISHA/di JOB#: [id number] / [id number] KEL
[2016-10-12 14:47] VITALS: BP 113/68
--- NOTE | 2016-10-12 15:54 | RAD ---
CT of the chest, abdomen and pelvis with contrast, 10/12/2016: History: Fever and weight loss Multidetector CT imaging was performed following oral and IV administration of contrast. The thoracic aorta is of normal caliber. There is mild subcarinal adenopathy. There is also increased lymphoid tissue at both noemi there is a 2.6 x 1.6 cm lymph node or daniel cluster at the right hilum. There is a 4 mm noncalcified nodule in the lateral aspect of the left lower lobe as seen on image 28 of series #3. No pulmonary consolidation is seen. There is no evidence of pleural fluid. There is a cluster of small nodules in the epicardial fat along the anterior inferior aspect of the left ventricle adjacent to the left lobe of the liver. The largest of these nodules measures 9 mm. These are probably prominent lymph nodes. The liver is abnormal with innumerable tiny ill-defined low-density foci throughout both lobes. Multiple large low-density lesions are seen throughout the spleen. The splenic lesions predominantly measure 1 to 2 cm in diameter. They are of higher density than simple cysts. No gallbladder abnormality is seen. The pancreas is unremarkable. No renal abnormality is detected. There are abnormal densities adjacent to the celiac axis and portocaval regions compatible with mild adenopathy. No pelvic adenopathy is identified. The uterus is unremarkable. The bowel loops are not dilated. No free fluid or free air is evident in the abdomen or pelvis. IMPRESSION: 1. Multiple splenic nodules and innumerable smaller confluent hepatic lesions as described above. Diagnostic considerations include sarcoidosis or lymphoma. Metastatic disease or an infectious process such as disseminated fungal disease are less likely possibilities. 2. Mild subcarinal, bilateral hilar and portocaval/celiac region adenopathy. 3. Tiny left lower lobe pulmonary nodule. PQRS Compliance Statement: One or more of the following individualized dose reduction techniques were utilized for this examination: 1. Automated exposure control 2. Adjustment of the mA and/or kV according to patient size 3. Use of iterative reconstruction technique
--- NOTE | 2016-10-12 18:33 | PDOC ---
SUBJECTIVE Subjective abrupt onset of pruritc/burning plaques - face, extremities. stayed for several days and resolved with discoloration OBJECTIVE Vital Signs Vital Signs Date Time Temp Pulse Resp B/P Pulse Ox O2 Delivery O2 Flow Rate FiO2 10/12/16 15:19 96 10/12/16 14:51 96 10/12/16 14:47 98.4 80 16 113/68 96 Room Air 98.4 10/12/16 11:17 98.0 84 107/68 96 98.0 10/12/16 10:43 98.0 84 16 107/68 96 Room Air 98.0 10/12/16 08:17 98.2 79 16 93/63 100 Room Air 98.2 10/12/16 07:34 78 18 98/52 100 Room Air 10/12/16 07:04 82 18 100/65 100 Room Air 10/12/16 06:34 80 16 108/55 100 Room Air 10/12/16 06:04 127/82 10/12/16 05:11 16 Room Air 10/12/16 04:41 98.5 103 16 109/69 100 98.5 10/12/16 04:26 98.5 103 16 109/69 100 Room Air 98.5 PHYSICAL EXAM Physical Exam Rather large ovoid urticarial plaque. bright red and sharply demarcated. Evidence of previous lesions from discoloration. 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 Suggested work up in article on chart. Suggested treatment includes prednisone 40mg/day or higher. Skin biopsy right arm done. She can have sutures removed at my office without charge. Problems: COMMENT Lab Laboratory Tests Test 10/12/16 03:26 10/12/16 04:20 10/12/16 04:36 10/12/16 10:20 Bedside Urine HCG, Qualitative Hcg negative (Negative) Urine Collection Type Unknown Urine Color Yellow Urine Clarity Clear Urine pH 7.0 Urine Specific [place] 1.015 Urine Protein 30mg/dL (NEG-TRACE) Urine Glucose (UA) Negativemg/dL (NEG) Urine Ketones (Stick) Negativemg/dL (NEG) Urine Blood Moderate (NEG) Urine Nitrite Negative (NEG) Urine Bilirubin Negative (NEG) Urine Urobilinogen Dipstick 1.0mg/dL (0.2 mg/dL) Urine Leukocyte Esterase Negative (NEG) Urine RBC 6-10/HPF (0-2) Urine WBC 5-10/HPF (0-4) Urine Squamous Epithelial Cells Mod/LPF Urine Bacteria Moderate/HPF (0-FEW) Urine Hyaline Casts Few/HPF Urine Mucus Marked/LPF Urine Opiates Screen Neg (NEG) Urine Methadone Screen Neg (NEG) Urine Barbiturates Neg (NEG) Urine Phencyclidine Screen Neg (NEG) Urine Amphetamine/Methamphetamine Neg (NEG) Urine Benzodiazepines Screen Neg (NEG) Urine Cocaine Screen Neg (NEG) Urine Cannabinoids Screen Pos (NEG) Urine Ethyl Alcohol Neg (NEG) White Blood Count 5.2x10^3/uL (4.0-11.0) Red Blood Count 4.19x10^6/uL (3.50-5.40) Hemoglobin 12.4g/dL (12.0-15.5) Hematocrit 37.4% (36.0-47.0) Mean Corpuscular Volume 89fL (79-100) Mean Corpuscular Hemoglobin 30pg (25-35) Mean Corpuscular Hemoglobin Concent 33g/dL (31-37) Red Cell Distribution Width 13.1% (11.5-14.5) Platelet Count 360x10^3/uL (140-400) Neutrophils (%) (Auto) 65% (31-73) Lymphocytes (%) (Auto) 20% (24-48) Monocytes (%) (Auto) 10% (0-9) Eosinophils (%) (Auto) 5% (0-3) Basophils (%) (Auto) 1% (0-3) Neutrophils # (Auto) 3.4x10^3uL (1.8-7.7) Lymphocytes # (Auto) 1.0x10^3/uL (1.0-4.8) Monocytes # (Auto) 0.5x10^3/uL (0.0-1.1) Eosinophils # (Auto) 0.3x10^3/uL (0.0-0.7) Basophils # (Auto) 0.0x10^3/uL (0.0-0.2) Sodium Level 137mmol/L (136-145) Potassium Level 3.7mmol/L (3.5-5.1) Chloride Level 98mmol/L (98-107) Carbon Dioxide Level 25mmol/L (21-32) Anion Gap 14 (6-14) Blood Urea Nitrogen 11mg/dL (7-20) Creatinine 0.8mg/dL (0.6-1.0) Estimated GFR (Cockcroft-Gault) 98.2 BUN/Creatinine Ratio 14 (6-20) Glucose Level 114mg/dL (70-99) Calcium Level 9.3mg/dL (8.5-10.1) Total Bilirubin 0.8mg/dL (0.2-1.0) Aspartate Amino Transf (AST/SGOT) 75U/L (15-37) Alanine Aminotransferase (ALT/SGPT) 77U/L (14-59) Alkaline Phosphatase 330U/L (46-116) Total Protein 8.5g/dL (6.4-8.2) Albumin 3.4g/dL (3.4-5.0) Albumin/Globulin Ratio 0.7 (1.0-1.7) Lipase 118U/L (73-393) Mycoplasma Serology (LAB) Negative (NEGATIVE) ELLIOT PEREZ MD Oct 12, 2016 18:33
[2016-10-12 19:00] VITALS: BP 112/70
[2016-10-12] MEDS ORDERED: DIPHENHYDRAMINE HCL 25 MG CAPSULE PO PRN (19:45)
[2016-10-12 22:30] VITALS: BP 105/70
[2016-10-12 22:33] LABS: OBC FLU VALID
--- NOTE | 2016-10-12 23:03 | OP ---
DATE OF SURGERY: PROCEDURE: Skin biopsy. DESCRIPTION OF PROCEDURE: After informed signed consent, prepped with Betadine and alcohol. Local 1% lidocaine with epinephrine. Then, 4 mm punch biopsy, right upper arm. Then, 4-0 nylon sutures. Antibiotic ointment and Band-Aid. Orders written. ELLIOT PEREZ MD DR: JOCELYN/nts JOB#: [id number] / [id number]
[2016-10-12 23:09] LABS: HEP A IGM ABDY Negative (Negative)
--- NOTE | 2016-10-13 00:02 | CONS ---
DATE OF CONSULTATION: 10/12/2016 REQUESTING PHYSICIAN: Dr. Salas. REASON FOR CONSULTATION: Fever, rash, weight loss, abdominal pain. HISTORY OF PRESENT ILLNESS: This is a 36-year-old -[place] female with history of gastroesophageal reflux disease who has generally been healthy. She has been having abdominal pain going on for now about a month or two with weight loss about 30 pounds in 2 months, started having rash all over the place in the body and just not feeling well. The patient also had a fever before she came in. The patient was seen by GI, workup has been started. Ultrasound has been done, which was unrevealing. Chest x-ray was also unremarkable. PAST MEDICAL HISTORY: As I mentioned, only positive for ____. SOCIAL HISTORY: Negative for smoking, alcohol, illicit drug use. FAMILY HISTORY: Mother has sarcoidosis. REVIEW OF SYSTEMS: As per HPI. All other systems were reviewed and negative. CURRENT MEDICATIONS: Reviewed. PHYSICAL EXAMINATION: GENERAL: Alert, oriented female. Not in any distress. VITAL SIGNS: Stable, afebrile. HEENT: NAD. NECK: Supple, no JVD, no lymphadenopathy. LUNGS: Clear. CARDIOVASCULAR: S1, S2 regular. ABDOMEN: Benign. EXTREMITIES: No edema or cyanosis. SKIN: The patient does have significant areas, different areas in different places with patches, red erythematous patches like hives. There is no blistering. There is no induration. NEUROLOGIC: Intact. LABORATORY DATA: White count 5.2, hemoglobin 12.4, platelets are normal. BUN and creatinine is normal. Her liver functions show an AST of 75, ALT of 77. Urinalysis showed 6-10 WBC. The drug screen was positive for marijuana. Ultrasound and chest x-ray unremarkable. IMPRESSION: 1. Fever. 2. Weight loss. 3. Abdominal pain. 4. Rash. Most likely the patient has either viral illness, but more so Rheumatologic disorder like sarcoidosis. We would start the workup, CT chest, abdomen and pelvis. Also Legionella, Mycoplasma, HIV, LYNSEY levels, CMV, EBV and we will continue to follow. Thank you very much, Dr. Salas, for giving me opportunity to participate in this patient's care. HAKAN IBARRA MD DR: ANDREA/di JOB#: [id number] / [id number] KEL
--- NOTE | 2016-10-13 00:21 | CONS ---
DATE OF CONSULTATION: 10/12/2016 REQUESTING PHYSICIAN: Dr. Salas. REASON FOR CONSULTATION: Skin rash, joint pain and swelling. HISTORY OF PRESENT ILLNESS: The patient is a 36-year-old -[place] female with a chronic history of GERD, was admitted because of 2 weeks duration of the fever associated with the rash and worsening of her GERD. She also developed the right third finger pain and swelling about 2 days ago. She is also found to have elevated LFT. So for further evaluation and management Rheumatology consultation has been requested. PAST MEDICAL HISTORY: GERD. PAST SURGICAL HISTORY: Tonsillectomy. SOCIAL HISTORY: She also smokes marijuana. Denies any tobacco smoking or alcohol abuse. FAMILY HISTORY: Positive for sarcoidosis in her mother. ALLERGIES: PENICILLIN, CODEINE, SULFA. MEDICATIONS: I have reviewed the list of medications. REVIEW OF SYSTEMS: She has lost 20-30 pounds over the last few months because of severe GERD. Otherwise, all other systems are reviewed and negative except HPI. PHYSICAL EXAMINATION: GENERAL: She is awake, alert, oriented x 3, not in acute distress. VITAL SIGNS: Revealed temperature 98, pulse 84, blood pressure 107/68 and respirations 16. SKIN: She does have the erythematous, raised, nonblanching, nontender big plaques on arms and the leg. HEENT: Normocephalic, atraumatic head. No oral ulcerations. NECK: Supple. HEART: S1, S2 regular. LUNGS: Clear to the auscultation. EXTREMITIES: No pitting edema. MUSCULOSKELETAL: Reveals tenderness with the swelling of right third finger, otherwise, no joint tenderness or synovitis. I have reviewed her laboratory test results. ASSESSMENT: 1. Right hand pain. 2. Skin rash. 3. Fever. 4. Undifferentiated autoimmune disease versus viral infection. 5. Significant weight loss. 6. Elevated liver functions. It is very difficult to comment clinically on exact etiology. Because of the family history as well as current symptoms would suggest autoimmune disease or viral infection. Her laboratory tests including PRISCILLA and LYNSEY level is pending. I would recommend to continue the treatment as possible infection and once everything is ruled out, then I will give her the trial with the prednisone and the Plaquenil and depending on the laboratory test results I may order further tests. Meanwhile we can use the analgesic on as needed basis. Thank you for allowing me to participate in her care. If any question, please do not hesitate to contact me. NANCIE REYES MD DR: VIKTORIA/di JOB#: [id number] / [id number]
[2016-10-13 04:44] LABS: BASO % 1 % (0-3); EOS % 4 % (0-3); HEMATOCRIT 32.4 % (36.0-47.0); HEMOGLOBIN 10.8 g/dL (12.0-15.5); LYMPH # 0.9 x10^3/uL (1.0-4.8); LYMPH % 20 % (24-48); MEAN CORPUSCULAR HEMOGLOBIN 30 pg (25-35); MEAN CORPUSCULAR HGB CONC 33 g/dL (31-37); MEAN CORPUSCULAR VOLUME 91 fL (79-100); MONO % 12 % (0-9); NEUT % 63 % (31-73); PLATELET COUNT 316 x10^3/uL (140-400); RED BLOOD COUNT 3.58 x10^6/uL (3.50-5.40); RED CELL DISTRIBUTION WIDTH 13.1 % (11.5-14.5); WHITE BLOOD COUNT 4.5 x10^3/uL (4.0-11.0)
[2016-10-13 05:40] LABS: ALBUMIN 2.8 g/dL (3.4-5.0); ALBUMIN/GLOBULIN RATIO 0.7 (1.0-1.7); CALCIUM 8.6 mg/dL (8.5-10.1); CREATININE 0.8 mg/dL (0.6-1.0); GFR 98.2; POTASSIUM 4.2 mmol/L (3.5-5.1); TOTAL BILIRUBIN 0.9 mg/dL (0.2-1.0); TOTAL PROTEIN 7.1 g/dL (6.4-8.2)
[2016-10-13 07:00] VITALS: BP 125/81
--- NOTE | 2016-10-13 09:06 | PDOC ---
Provider Note Provider Note HEM/ONC CONSULT: 1. Multiple splenic nodules and innumerable smaller confluent hepatic lesion. Diagnostic considerations include sarcoidosis or lymphoma. Plan liver bx see dictation MITESH GREWAL MD Oct 13, 2016 09:06
[2016-10-13] MEDS: PANTOPRAZOLE 40 MG TABLET. PO SCH (09:23)
[2016-10-13] MEDS: FENTANYL PF 100 MCG/2 ML VIAL. IV PRN ×2 (09:24→19:58)
--- NOTE | 2016-10-13 10:07 | PDOC ---
PROGRESS NOTES Subjective Subjective nausea and vomiting today Objective Objective Vital Signs Date Time Temp Pulse Resp B/P Pulse Ox O2 Delivery O2 Flow Rate FiO2 10/13/16 07:00 99.4 78 16 125/81 100 Room Air 99.4 Intake and Output 10/13/16 07:00 Intake Total 2140 ml Balance 2140 ml Intake Oral 1140 ml IV Total 1000 ml # Voids 1 Physical Exam Abdomen: Normal bowel sounds, Soft Heart: Regular rate, Normal S1 Extremities: No clubbing General: Alert HEENT: Atraumatic Lungs: Clear to auscultation Neck: Supple Neuro: Normal speech Psych/Mental Status: Mental status NL Skin: No breakdown Diagnosis Problem List Problems Medical Problems: (1) Abdominal pain Status: Acute (2) GERD (gastroesophageal reflux disease) Status: Acute (3) Nausea and vomiting Status: Acute (4) Rash Status: Acute Assessment Assessment Problems Medical Problems: (1) Abdominal pain Status: Acute (2) GERD (gastroesophageal reflux disease) Status: Acute (3) Nausea and vomiting Status: Acute (4) Rash Status: Acute FINAL IMPRESSION: 1. Significant weight loss. 2. Purpuric lesions in the skin. 3. Family history of sarcoidosis. 4. Elevated liver function tests. PLAN: Liver biopsy today. had skin biopsy rt arm. HIV and hepatitis test-neg CT scan spleen lesions.liver lesions,small lymphadenopathy in chest. At this time, CT of the chest, abdomen and pelvis. GI was consulted. We have Dermatology as well as Rheumatology consult is if dealing with any connective tissue diseases or immune mediated disease. Problems: Plan Plan of Care Problems Medical Problems: (1) Abdominal pain Status: Acute (2) GERD (gastroesophageal reflux disease) Status: Acute (3) Nausea and vomiting Status: Acute (4) Rash Status: Acute Comment Review of Relevant I have reviewed the following items di (where applicable) has been applied. Labs Laboratory Tests Test 10/12/16 10:20 10/13/16 04:16 Cytomegalovirus IgG Antibody 9.60U/mL (0.00-0.59) Cytomegalovirus IgM Antibody <30.0AU/mL (0.0-29.9) Hepatitis A IgM Antibody Negative (Negative) Hepatitis B Surface Antigen Negative (Negative) Hepatitis B Core IgM Antibody Negative (Negative) Hepatitis C Antibody <0.1s/co ratio (0.0-0.9) HIV-1 Antibody Non reactive (Non Reactive) Mycoplasma Serology (LAB) Negative (NEGATIVE) White Blood Count 4.5x10^3/uL (4.0-11.0) Red Blood Count 3.58x10^6/uL (3.50-5.40) Hemoglobin 10.8g/dL (12.0-15.5) Hematocrit 32.4% (36.0-47.0) Mean Corpuscular Volume 91fL (79-100) Mean Corpuscular Hemoglobin 30pg (25-35) Mean Corpuscular Hemoglobin Concent 33g/dL (31-37) Red Cell Distribution Width 13.1% (11.5-14.5) Platelet Count 316x10^3/uL (140-400) Neutrophils (%) (Auto) 63% (31-73) Lymphocytes (%) (Auto) 20% (24-48) Monocytes (%) (Auto) 12% (0-9) Eosinophils (%) (Auto) 4% (0-3) Basophils (%) (Auto) 1% (0-3) Neutrophils # (Auto) 2.8x10^3uL (1.8-7.7) Lymphocytes # (Auto) 0.9x10^3/uL (1.0-4.8) Monocytes # (Auto) 0.5x10^3/uL (0.0-1.1) Eosinophils # (Auto) 0.2x10^3/uL (0.0-0.7) Basophils # (Auto) 0.0x10^3/uL (0.0-0.2) Sodium Level 141mmol/L (136-145) Potassium Level 4.2mmol/L (3.5-5.1) Chloride Level 106mmol/L (98-107) Carbon Dioxide Level 25mmol/L (21-32) Anion Gap 10 (6-14) Blood Urea Nitrogen 9mg/dL (7-20) Creatinine 0.8mg/dL (0.6-1.0) Estimated GFR (Cockcroft-Gault) 98.2 BUN/Creatinine Ratio 11 (6-20) Glucose Level 98mg/dL (70-99) Calcium Level 8.6mg/dL (8.5-10.1) Total Bilirubin 0.9mg/dL (0.2-1.0) Aspartate Amino Transf (AST/SGOT) 41U/L (15-37) Alanine Aminotransferase (ALT/SGPT) 52U/L (14-59) Alkaline Phosphatase 255U/L (46-116) Total Protein 7.1g/dL (6.4-8.2) Albumin 2.8g/dL (3.4-5.0) Albumin/Globulin Ratio 0.7 (1.0-1.7) Medications Current Medications Diphenhydramine HCl (Benadryl) 25 mg PRN Q6HRS PRN PO ITCHING Last administered on 10/12/16 19:55; Start 10/12/16 at 19:45 Fentanyl Citrate (Fentanyl 2ml Vial) 25 mcg PRN Q3HRS PRN IV severe pain Last administered on 10/13/16 09:24; Start 10/12/16 at 23:15 Info (Do NOT chart on this entry -- for MONITORING) 1 each PRN DAILY PRN MC SEE COMMENTS; Start 10/12/16 at 11:30; Stop 10/14/16 at 11:29 Iohexol (Omnipaque 240 Mg/ml) 30 ml 1X ONCE PO Last administered on 10/12/16 11:15; Start 10/12/16 at 11:15; Stop 10/12/16 at 11:16; Status DC Iohexol (Omnipaque 300 Mg/ml) 75 ml 1X ONCE IV Last administered on 10/12/16 12:29; Start 10/12/16 at 11:15; Stop 10/12/16 at 11:16; Status DC Vitals/I & O Vital Sign - Last 24 Hours 10/12/16 10/12/16 10/12/16 10/12/16 10:43 11:17 14:47 14:51 Temp 98.0 98.0 98.4 98.0 98.0 98.4 Pulse 84 84 80 Resp 16 16 B/P 107/68 107/68 113/68 Pulse Ox 96 96 96 96 O2 Delivery Room Air Room Air 10/12/16 10/12/16 10/12/16 10/12/16 15:19 19:00 22:30 23:29 Temp 98.3 100.0 98.3 100.0 Pulse 81 88 Resp 17 18 15 B/P 112/70 105/70 Pulse Ox 96 100 97 97 O2 Delivery Room Air Room Air Room Air 10/13/16 10/13/16 00:11 07:00 Temp 99.4 99.4 Pulse 78 Resp 15 16 B/P 125/81 Pulse Ox 97 100 O2 Delivery Room Air Room Air Intake and Output 10/12/16 10/12/16 10/13/16 15:00 23:00 07:00 Intake Total 1000 ml 240 ml 900 ml Balance 1000 ml 240 ml 900 ml FERNANDO FLOWER MD Oct 13, 2016 10:07
[2016-10-13] MEDS ORDERED: ONDANSETRON PF 4 MG/2 ML VIAL. IV PRN (10:15)
--- NOTE | 2016-10-13 10:26 | PDOC ---
Infectious Disease Note Subjective Subjective feeling ok ROS ROS GEN: Denies fevers, chills, sweats HEENT: Denies blurred vision, sore throat CV: Denies chest pain RESP: Denies shortness of air, cough NEURO: Denies confusion, dizziness MSK: Denies weakness, joint pain/swelling Vital Sign Vital Signs Vital Signs Date Time Temp Pulse Resp B/P Pulse Ox O2 Delivery O2 Flow Rate FiO2 10/13/16 07:00 99.4 78 16 125/81 100 Room Air 99.4 Physical Exam PHYSICAL EXAM GENERAL: NAD, Alert HEENT: PERRL, OC/OP NECK: Supple, no JVD, no LN LUNGS: Clear HEART: S1S2, no gallop, no murmur ABD: Soft, NT, no organomegaly, no rebound EXT: No edema, no cyanosis [employer]: Alert, oriented x 3, no focal neurologic deficit SKIN: No rash IV: ok Labs Lab Laboratory Tests Test 10/13/16 04:16 White Blood Count 4.5x10^3/uL (4.0-11.0) Red Blood Count 3.58x10^6/uL (3.50-5.40) Hemoglobin 10.8g/dL (12.0-15.5) Hematocrit 32.4% (36.0-47.0) Mean Corpuscular Volume 91fL (79-100) Mean Corpuscular Hemoglobin 30pg (25-35) Mean Corpuscular Hemoglobin Concent 33g/dL (31-37) Red Cell Distribution Width 13.1% (11.5-14.5) Platelet Count 316x10^3/uL (140-400) Neutrophils (%) (Auto) 63% (31-73) Lymphocytes (%) (Auto) 20% (24-48) Monocytes (%) (Auto) 12% (0-9) Eosinophils (%) (Auto) 4% (0-3) Basophils (%) (Auto) 1% (0-3) Neutrophils # (Auto) 2.8x10^3uL (1.8-7.7) Lymphocytes # (Auto) 0.9x10^3/uL (1.0-4.8) Monocytes # (Auto) 0.5x10^3/uL (0.0-1.1) Eosinophils # (Auto) 0.2x10^3/uL (0.0-0.7) Basophils # (Auto) 0.0x10^3/uL (0.0-0.2) Sodium Level 141mmol/L (136-145) Potassium Level 4.2mmol/L (3.5-5.1) Chloride Level 106mmol/L (98-107) Carbon Dioxide Level 25mmol/L (21-32) Anion Gap 10 (6-14) Blood Urea Nitrogen 9mg/dL (7-20) Creatinine 0.8mg/dL (0.6-1.0) Estimated GFR (Cockcroft-Gault) 98.2 BUN/Creatinine Ratio 11 (6-20) Glucose Level 98mg/dL (70-99) Calcium Level 8.6mg/dL (8.5-10.1) Total Bilirubin 0.9mg/dL (0.2-1.0) Aspartate Amino Transf (AST/SGOT) 41U/L (15-37) Alanine Aminotransferase (ALT/SGPT) 52U/L (14-59) Alkaline Phosphatase 255U/L (46-116) Total Protein 7.1g/dL (6.4-8.2) Albumin 2.8g/dL (3.4-5.0) Albumin/Globulin Ratio 0.7 (1.0-1.7) Objective Assessment Fever Wt loss Abd pain Rash Plan Plan of Care ct noted, liver biopsy pending HAKAN IBARRA MD Oct 13, 2016 10:26
[2016-10-13 10:37] VITALS: BP 103/71
[2016-10-13] MEDS: POTASSIUM CL 20MEQ D5-0.9%NACL 1,000 ML IV SCH (10:53)
[2016-10-13 10:59] LABS: INR 1.5 (0.8-1.1); PROTHROMBIN TIME PATIENT 16.8 SEC (11.7-14.0)
--- NOTE | 2016-10-13 11:46 | PDOC ---
Subjective: Subjective: RUQ pain comes in waves. Some vomiting. Objective: Objective: Per RN - liver biopsy tomorrow. D/w Dr. Adrienne Logan. Reviewed other notes. Vital Signs: Vital Signs Date Time Temp Pulse Resp B/P Pulse Ox O2 Delivery O2 Flow Rate FiO2 10/13/16 10:37 98.9 81 16 103/71 96 Room Air 98.9 Labs: Laboratory Tests Test 10/13/16 04:16 10/13/16 10:34 White Blood Count 4.5x10^3/uL Red Blood Count 3.58x10^6/uL Hemoglobin 10.8g/dL Hematocrit 32.4% Mean Corpuscular Volume 91fL Mean Corpuscular Hemoglobin 30pg Mean Corpuscular Hemoglobin Concent 33g/dL Red Cell Distribution Width 13.1% Platelet Count 316x10^3/uL Neutrophils (%) (Auto) 63% Lymphocytes (%) (Auto) 20% Monocytes (%) (Auto) 12% Eosinophils (%) (Auto) 4% Basophils (%) (Auto) 1% Neutrophils # (Auto) 2.8x10^3uL Lymphocytes # (Auto) 0.9x10^3/uL Monocytes # (Auto) 0.5x10^3/uL Eosinophils # (Auto) 0.2x10^3/uL Basophils # (Auto) 0.0x10^3/uL Sodium Level 141mmol/L Potassium Level 4.2mmol/L Chloride Level 106mmol/L Carbon Dioxide Level 25mmol/L Anion Gap 10 Blood Urea Nitrogen 9mg/dL Creatinine 0.8mg/dL Estimated GFR (Cockcroft-Gault) 98.2 BUN/Creatinine Ratio 11 Glucose Level 98mg/dL Calcium Level 8.6mg/dL Total Bilirubin 0.9mg/dL Aspartate Amino Transf (AST/SGOT) 41U/L Alanine Aminotransferase (ALT/SGPT) 52U/L Alkaline Phosphatase 255U/L Total Protein 7.1g/dL Albumin 2.8g/dL Albumin/Globulin Ratio 0.7 Prothrombin Time 16.8SEC Prothromb Time International Ratio 1.5 Imaging: CT chest, abd, pelvis 10/12/16 IMPRESSION: 1. Multiple splenic nodules and innumerable smaller confluent hepatic lesions as described above. Diagnostic considerations include sarcoidosis or lymphoma. Metastatic disease or an infectious process such as disseminated fungal disease are less likely possibilities. 2. Mild subcarinal, bilateral hilar and portocaval/celiac region adenopathy. 3. Tiny left lower lobe pulmonary nodule. PE: GEN: NAD LUNGS: CTAB HEART: RRR ABD: BS+, tender mostly RUQ NEURO/PSYCH: A & O 3 A/P: Fever/sweats, weight loss, rash, abd pain -GI, ID, onc, rheum, derm following -s/p skin biopsy 10/12, liver biopsy planned 10/14 -PRISCILLA, AMA, ASMA, LYNSEY, EBV pending Abnormal CT -splenic nodules and hepatic lesions, subcarinal/hilar/celiac region adenopathy , tiny LLL pulm nodule FH sarcoidosis GERD, vomiting -on PPI and Tums -- Workup ongoing, await additional labs and liver biopsy. BRIGITTE LOPEZ Oct 13, 2016 11:46
[2016-10-13 14:50] VITALS: BP 105/73
[2016-10-13 19:00] VITALS: BP 110/78
[2016-10-13 23:04] VITALS: BP 100/73
[2016-10-14] VITALS (8 sets, daily range): BP systolic 104–117; BP diastolic 66–77
[2016-10-14] MEDS: POTASSIUM CL 20MEQ D5-0.9%NACL 1,000 ML IV SCH ×2 (00:38→13:01)
[2016-10-14 06:08] LABS: ALBUMIN 2.7 g/dL (3.4-5.0); DIRECT BILIRUBIN 0.2 mg/dL (0.0-0.2); TOTAL BILIRUBIN 0.7 mg/dL (0.2-1.0); TOTAL PROTEIN 6.3 g/dL (6.4-8.2)
--- NOTE | 2016-10-14 06:26 | CONS ---
DATE OF CONSULTATION: 10/13/2016 MEDICAL ONCOLOGY CONSULTATION CONSULTATION REQUESTED BY: Dr. Ronna Salas. REASON FOR CONSULTATION: Liver and splenic nodules, concerning for lymphoma versus sarcoidosis noted on CAT scan done on 10/12/2016. HISTORY OF PRESENT ILLNESS: The patient is a 36-year-old female, who reports having had a history of gastroesophageal reflux disease for many years and she has had worsening epigastric burning pain, bloating, nausea, vomiting, and regurgitation for 3 weeks' duration prior to her admission to [facility] on 10/12/2016. She has had symptoms even prior to that for at least a year, preceding this admission. Her symptoms get worse after eating, her appetite fluctuates, and she has lost 30 pounds over a year. In 2010, she had an EGD that revealed nonerosive gastritis. She has also noticed pruritic rash/welt in the face, leg, and arms. She has also had fever of 3 weeks' duration up to 101 degrees and drenching night sweats. She was evaluated by Dermatology, by Dr. Tomeka De La Cruz, who noted that the patient had large ovoid urticarial plaques, which are bright red and sharply demarcated with evidence of previous lesions from discoloration of the skin. 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 She underwent a CT scan of the chest, abdomen, and pelvis on 10/12/2016 that revealed multiple splenic nodules and innumerable smaller confluent hepatic lesions, which is suggestive of sarcoidosis or lymphoma. Metastatic disease or infectious process is thought to be less likely. The splenic lesions predominantly measure 1-2 cm in diameter. There is mild lymphadenopathy in the subcarinal region and both hilar regions, measuring 2.6 cm. There was also mild lymphadenopathy in the celiac axis and portacaval regions. A tiny left lower lobe lung nodule was also noted. I was asked to see the patient for further evaluation of possible lymphoma. PAST MEDICAL HISTORY: Gastroesophageal reflux disease, pyelonephritis. PAST SURGICAL HISTORY: Tonsillectomy. SOCIAL HISTORY: No smoking. She drinks alcohol socially. She also has a history of smoking marijuana. FAMILY HISTORY: Mother had uterine cancer and sarcoidosis. REVIEW OF SYSTEMS: A 12-point review of systems was performed. Pertinent positives are mentioned in the history of present illness. Rest of the system review is negative. PHYSICAL EXAMINATION: GENERAL APPEARANCE: The patient is a 36-year-old female, who is in no acute cardiorespiratory distress. VITAL SIGNS: Blood pressure 103/71, temperature 98.9. HEENT: Atraumatic, normocephalic. Eyes: No icterus. NECK: Supple. CHEST: Bilaterally symmetrical. No crepitations or rhonchi heard. HEART: S1, S2 normal. ABDOMEN: Soft, nontender. No hepatosplenomegaly. CENTRAL NERVOUS SYSTEM: No focal neurological deficits. LYMPHATICS: No lymphadenopathy. SKIN: She has evidence of large ovoid urticarial plaques on the skin. They are bright red. There are also evidence of previous lesions due to discoloration of the skin. IMPRESSION AND PLAN: 1. Liver lesions and splenic lesions noted on a CT of chest, abdomen, and pelvis on 10/12/2016. In addition, she has evidence of mild lymphadenopathy in the mediastinum, bilateral hilar lesions, and portacaval and celiac lesions. The primary considerations include sarcoidosis versus lymphoma. Hence, I will pursue with further diagnostic workup with a CT-guided biopsy of the liver lesions. I discussed in detail with the patient and her mother. They understand and agree with the plan. Rheumatology consultation appreciated. Infectious Disease consultation appreciated unlikely that she has any infectious process in the liver or spleen per the radiologist. 2. Fever. Appreciate Infectious Disease consultation workup as above. 3. Skin rash. Appreciate Dermatology consultation. MITESH GREWAL MD DR: ASHLEY/di JOB#: [id number] / [id number] KEL
[2016-10-14] MEDS: PANTOPRAZOLE 40 MG TABLET. PO SCH (07:45)
[2016-10-14] MEDS ORDERED: LIDOCAINE 1% / SOD BICARB 8.4% 20 ML VIAL. IJ ONE (08:00)
[2016-10-14] MEDS ORDERED: GELATIN SPONGE SIZE 12-7MM SPONGE. ONE (08:21)
[2016-10-14] MEDS ORDERED: MIDAZOLAM HCL 2 MG/2 ML VIAL. ONE (08:47)
[2016-10-14] MEDS ORDERED: NALOXONE 0.4 MG/ML VIAL. ONE (08:48)
[2016-10-14] MEDS ORDERED: FLUMAZENIL 0.5 MG/5 ML VIAL. IV ONE (08:48)
--- NOTE | 2016-10-14 08:59 | PDOC ---
PROGRESS NOTES Subjective Subjective c/c - f/u of Liver lesions and splenic lesions Objective Objective Vital Signs Date Time Temp Pulse Resp B/P Pulse Ox O2 Delivery O2 Flow Rate FiO2 10/14/16 07:00 98.1 81 18 109/76 100 Room Air 98.1 Intake and Output 10/14/16 07:00 Intake Total 240 ml Balance 240 ml Intake Oral 240 ml # Voids 7 Physical Exam Heart: Normal S1, Normal S2 General: Alert, Oriented X3 Lungs: Clear to auscultation Neuro: Normal speech Psych/Mental Status: Mental status NL Assessment Assessment Problems Medical Problems: (1) Abdominal pain Status: Acute (2) GERD (gastroesophageal reflux disease) Status: Acute (3) Nausea and vomiting Status: Acute (4) Rash Status: Acute IMPRESSION AND PLAN: 1. Liver lesions and splenic lesions noted on a CT of chest, abdomen, and pelvis on 10/12/2016. In addition, she has evidence of mild lymphadenopathy in the mediastinum, bilateral hilar lesions, and portacaval and celiac lesions. The primary considerations include sarcoidosis versus lymphoma. Hence, I will pursue with further diagnostic workup with a CT-guided biopsy of the liver lesions. I discussed in detail with the patient and her mother. They understand and agree with the plan. Rheumatology consultation appreciated. Infectious Disease consultation appreciated unlikely that she has any infectious process in the liver or spleen per the radiologist. I consulted IR. Liver bx planned 10/14/16. 2. Fever. Appreciate Infectious Disease consultation workup as above. 3. Skin rash. Appreciate Dermatology consultation. Comment Review of Relevant I have reviewed the following items di (where applicable) has been applied. Labs Laboratory Tests Test 10/12/16 09:10 10/12/16 10:20 10/12/16 14:30 10/13/16 04:16 Influenza Type A Antigen Negative (NEGATIVE) Influenza Type B Antigen Negative (NEGATIVE) Cytomegalovirus IgG Antibody 9.60U/mL (0.00-0.59) Cytomegalovirus IgM Antibody <30.0AU/mL (0.0-29.9) Hepatitis A IgM Antibody Negative (Negative) Hepatitis B Surface Antigen Negative (Negative) Hepatitis B Core IgM Antibody Negative (Negative) Hepatitis C Antibody <0.1s/co ratio (0.0-0.9) HIV-1 Antibody Non reactive (Non Reactive) Mycoplasma Serology (LAB) Negative (NEGATIVE) Urine Legionella Antigen Negative (Negative) White Blood Count 4.5x10^3/uL (4.0-11.0) Red Blood Count 3.58x10^6/uL (3.50-5.40) Hemoglobin 10.8g/dL (12.0-15.5) Hematocrit 32.4% (36.0-47.0) Mean Corpuscular Volume 91fL (79-100) Mean Corpuscular Hemoglobin 30pg (25-35) Mean Corpuscular Hemoglobin Concent 33g/dL (31-37) Red Cell Distribution Width 13.1% (11.5-14.5) Platelet Count 316x10^3/uL (140-400) Neutrophils (%) (Auto) 63% (31-73) Lymphocytes (%) (Auto) 20% (24-48) Monocytes (%) (Auto) 12% (0-9) Eosinophils (%) (Auto) 4% (0-3) Basophils (%) (Auto) 1% (0-3) Neutrophils # (Auto) 2.8x10^3uL (1.8-7.7) Lymphocytes # (Auto) 0.9x10^3/uL (1.0-4.8) Monocytes # (Auto) 0.5x10^3/uL (0.0-1.1) Eosinophils # (Auto) 0.2x10^3/uL (0.0-0.7) Basophils # (Auto) 0.0x10^3/uL (0.0-0.2) Sodium Level 141mmol/L (136-145) Potassium Level 4.2mmol/L (3.5-5.1) Chloride Level 106mmol/L (98-107) Carbon Dioxide Level 25mmol/L (21-32) Anion Gap 10 (6-14) Blood Urea Nitrogen 9mg/dL (7-20) Creatinine 0.8mg/dL (0.6-1.0) Estimated GFR (Cockcroft-Gault) 98.2 BUN/Creatinine Ratio 11 (6-20) Glucose Level 98mg/dL (70-99) Calcium Level 8.6mg/dL (8.5-10.1) Total Bilirubin 0.9mg/dL (0.2-1.0) Aspartate Amino Transf (AST/SGOT) 41U/L (15-37) Alanine Aminotransferase (ALT/SGPT) 52U/L (14-59) Alkaline Phosphatase 255U/L (46-116) Total Protein 7.1g/dL (6.4-8.2) Albumin 2.8g/dL (3.4-5.0) Albumin/Globulin Ratio 0.7 (1.0-1.7) Test 10/13/16 10:34 10/14/16 05:00 Prothrombin Time 16.8SEC (11.7-14.0) Prothromb Time International Ratio 1.5 (0.8-1.1) Total Bilirubin 0.7mg/dL (0.2-1.0) Direct Bilirubin 0.2mg/dL (0.0-0.2) Aspartate Amino Transf (AST/SGOT) 53U/L (15-37) Alanine Aminotransferase (ALT/SGPT) 51U/L (14-59) Alkaline Phosphatase 246U/L (46-116) Total Protein 6.3g/dL (6.4-8.2) Albumin 2.7g/dL (3.4-5.0) Laboratory Tests Test 10/13/16 10:34 10/14/16 05:00 Prothrombin Time 16.8SEC (11.7-14.0) Prothromb Time International Ratio 1.5 (0.8-1.1) Total Bilirubin 0.7mg/dL (0.2-1.0) Direct Bilirubin 0.2mg/dL (0.0-0.2) Aspartate Amino Transf (AST/SGOT) 53U/L (15-37) Alanine Aminotransferase (ALT/SGPT) 51U/L (14-59) Alkaline Phosphatase 246U/L (46-116) Total Protein 6.3g/dL (6.4-8.2) Albumin 2.7g/dL (3.4-5.0) Microbiology 10/12/16 Blood Culture - Preliminary, Resulted NO GROWTH AFTER 1 DAY Medications Current Medications Fentanyl Citrate 25 mcg 25 mcg PRN Q15MIN PRN IV PAIN GREATER THAN 3/10 Last administered on 10/12/16t 14:51; Start 10/12/16 at 05:00; Stop 10/13/16 at 00:00 ; Status DC Sodium Chloride (Iv Sodium Chloride 0.9% 1000ml Bag) 1,000 ml @ 1,000 mls/hr Q1H IV Last administered on 10/12/16 05:10; Start 10/12/16 at 05:30; Stop at 06:29; Status DC Ondansetron HCl (Zofran) 4 mg 1X ONCE IV Last administered on 10/12/16 05:10 ; Start 10/12/16 at 05:30; Stop 10/12/16 at 05:31; Status DC Ketorolac Tromethamine (Toradol) 10 mg 1X ONCE IV Last administered on 05:12; Start 10/12/16 at 05:30; Stop 10/12/16 at 05:31; Status DC Diphenhydramine HCl (Benadryl) 25 mg 1X ONCE IVP Last administered on 05:10; Start 10/12/16 at 05:30; Stop 10/12/16 at 05:31; Status DC Ondansetron HCl 4 mg 4 mg PRN Q8HRS PRN IV NAUSEA/VOMITING Last administered on 10/12/16 14:52; Start 10/12/16 at 06:45; Stop 10/13/16 at 06:44; Status DC Sodium Chloride (Iv Sodium Chloride 0.9% 1000ml Bag) 1,000 ml @ 125 mls/hr Q8H IV Last administered on 10/12/16 20:55; Start 10/12/16 at 06:43; Stop at 06:42; Status DC Acetaminophen (Tylenol) 650 mg PRN Q4HRS PRN PO FEVER; Start 10/12/16 at 06:45 ; Stop 10/13/16 at 06:44; Status DC Pantoprazole Sodium (Protonix) 40 mg DAILYAC PO Last administered on 10/13/16 09:23; Start 10/12/16 at 10:00 Calcium Carbonate/ Glycine (Tums) 500 mg PRN AFTMEALHC PRN PO INDIGESTION Last administered on 10/13/16 09:23; Start 10/12/16 at 09:15 Polyethylene Glycol (miraLAX PACKET) 17 gm PRN DAILY PRN PO CONSTIPATION Last administered on 10/13/16 09:23; Start 10/12/16 at 09:15 Iohexol (Omnipaque 240 Mg/ml) 30 ml 1X ONCE PO Last administered on 10/12/16 11:15; Start 10/12/16 at 11:15; Stop 10/12/16 at 11:16; Status DC Iohexol (Omnipaque 300 Mg/ml) 75 ml 1X ONCE IV Last administered on 10/12/16 12:29; Start 10/12/16 at 11:15; Stop 10/12/16 at 11:16; Status DC Info (Do NOT chart on this entry -- for MONITORING) 1 each PRN DAILY PRN MC SEE COMMENTS; Start 10/12/16 at 11:30; Stop 10/14/16 at 11:29 Diphenhydramine HCl (Benadryl) 25 mg PRN Q6HRS PRN PO ITCHING Last administered on 10/12/16 19:55; Start 10/12/16 at 19:45 Fentanyl Citrate (Fentanyl 2ml Vial) 25 mcg PRN Q3HRS PRN IV severe pain Last administered on 10/13/16 19:58; Start 10/12/16 at 23:15 Ondansetron HCl 8 mg 8 mg PRN Q6HRS PRN IV NAUSEA/VOMITING Last administered on 10/14/16 07:54; Start 10/13/16 at 10:15 Potassium Chloride/Dextrose/ Sod Cl (KCl 20 Meq In D5W-NS) 1,000 ml @ 75 mls/ hr [id number] IV Last administered on 10/14/16 00:38; Start 10/13/16 at 10:15 Lidocaine/Sodium Bicarbonate (Buffered Lidocaine 1%) 20 ml STK-MED ONCE IJ ; Start 10/14/16 at 08:00; Stop 10/14/16 at 08:01; Status DC Gelatin (Gelfoam Size 12-7mm) 1 each STK-MED ONCE .ROUTE ; Start 10/14/16 at 08 :21; Stop 10/14/16 at 08:22; Status DC Midazolam HCl (Versed) 2 mg STK-MED ONCE .ROUTE ; Start 10/14/16 at 08:47; Stop 10/14/16 at 08:48; Status DC Naloxone HCl (Narcan) 0.4 mg STK-MED ONCE .ROUTE ; Start 10/14/16 at 08:48; Stop 10/14/16 at 08:49; Status DC Flumazenil (Romazicon) 0.5 mg STK-MED ONCE IV ; Start 10/14/16 at 08:48; Stop at 08:49; Status DC Active Scripts Active Zofran Odt (Ondansetron) 4 Mg Tab.rapdis 1 Tab SL Q8HRS Nexium Capsule (Esomeprazole Magnesium) 40 Mg Capsule.dr 1 Cap PO DAILY Diflucan (Fluconazole) 150 Mg Tablet 1 Tab PO ONCE Keflex (Cephalexin) 500 Mg Capsule 1 Cap PO TID Vitals/I & O Vital Sign - Last 24 Hours 10/13/16 10/13/16 10/13/16 10/13/16 10:37 14:50 19:00 19:58 Temp 98.9 99.3 99.9 98.9 99.3 99.9 Pulse 81 75 77 Resp 16 16 20 16 B/P 103/71 105/73 110/78 Pulse Ox 96 96 100 100 O2 Delivery Room Air Room Air Room Air Room Air 10/13/16 10/13/16 10/14/16 10/14/16 20:45 23:04 03:00 07:00 Temp 99.2 98.7 98.1 99.2 98.7 98.1 Pulse 78 75 81 Resp 15 20 20 18 B/P 100/73 107/74 109/76 Pulse Ox 100 100 100 100 O2 Delivery Room Air Room Air Room Air Room Air Intake and Output 10/13/16 10/13/16 10/14/16 15:00 23:00 07:00 Intake Total 240 ml Balance 240 ml MITESH GREWAL MD Oct 14, 2016 08:59
[2016-10-14] MEDS ORDERED: MIDAZOLAM HCL 2 MG/2 ML VIAL. IV ONE (09:00)
[2016-10-14] MEDS ORDERED: FENTANYL PF 100 MCG/2 ML VIAL. IV ONE (09:00)
[2016-10-14] MEDS ORDERED: LIDOCAINE 2% 20 ML VIAL. IJ ONE (09:00)
--- NOTE | 2016-10-14 10:14 | PDOC ---
MODERATE SEDATION ASSESSMENT RISKS/ALTERNATIVES Risks/Alternatives Risks and alternatives of this type of sedation and procedure discussed with: RISK/ALTERNATIVES: Patient H & P ON CHART H & P H & P on chart and reviewed for co-morbid conditions and appropriate labs. H&P ON CHART: Yes STATUS PREG STATUS ASSESSED: Yes MEDS/ALLERGIES REVIEWED Meds/Allergies Reviewed Medications and Allergies including time and route of recently administered narcotics and sedatives. MEDS/ALLERGIES REVIEWED: Yes ASA RATING ASA RATING: II AIRWAY ASSESSMENT Airway Assessment Airway patency, oral function limitations, presence of caps, crowns, dentures, partials, and ability to extend neck assessed. AIRWAY ASSESSMENT: Yes MALLAMPATI SCORE MALLAMPATI SCORE: II PRE-SEDATION ASSESSMENT PRE-SEDATION ASSESSMENT: Yes DWAINE BAKER MD Oct 14, 2016 10:14
--- NOTE | 2016-10-14 10:18 | PDOC ---
BRIEF OPERATIVE NOTE Pre-Op Diagnosis Innumerable confluent liver nodules Post-Op Diagnosis same Procedure Performed CT biopsy Surgeon Ludy Anesthesia Type: Conscious Sedation Specimens Obtained 9 x 18g cores from separate regions of the left lobe divided between formalin, RPMI and NS for microbiologic analysis. Complications No immediate DWAINE BAKER MD Oct 14, 2016 10:18
--- NOTE | 2016-10-14 10:30 | PDOC ---
Infectious Disease Note Subjective Subjective feeling ok ROS ROS GEN: Denies chills, sweats HEENT: Denies blurred vision, sore throat CV: Denies chest pain RESP: Denies shortness of air, cough GI: Denies n/v/d NEURO: Denies confusion, dizziness MSK: Denies weakness, joint pain/swelling Vital Sign Vital Signs Vital Signs Date Time Temp Pulse Resp B/P Pulse Ox O2 Delivery O2 Flow Rate FiO2 10/14/16 09:39 78 16 99 Room Air 10/14/16 07:00 98.1 109/76 98.1 Physical Exam PHYSICAL EXAM GENERAL: NAD, Alert HEENT: PERRL, OC/OP NECK: Supple, no JVD, no LN LUNGS: Clear HEART: S1S2, no gallop, no murmur ABD: Soft, NT, no organomegaly, no rebound EXT: No edema, no cyanosis [employer] SPECIALIST: Alert, oriented x 3, no focal neurologic deficit SKIN: No rash IV: ok Labs Lab Laboratory Tests Test 10/13/16 10:34 10/14/16 05:00 Prothrombin Time 16.8SEC (11.7-14.0) Prothromb Time International Ratio 1.5 (0.8-1.1) Total Bilirubin 0.7mg/dL (0.2-1.0) Direct Bilirubin 0.2mg/dL (0.0-0.2) Aspartate Amino Transf (AST/SGOT) 53U/L (15-37) Alanine Aminotransferase (ALT/SGPT) 51U/L (14-59) Alkaline Phosphatase 246U/L (46-116) Total Protein 6.3g/dL (6.4-8.2) Albumin 2.7g/dL (3.4-5.0) Objective Assessment Fever Wt loss Abd pain Rash Liver and spenic masses, s/p biopsy Plan Plan of Care ok to d/c HAKAN IBARRA MD Oct 14, 2016 10:30
[2016-10-14] MEDS ORDERED: ALBUMIN HUMAN 25% 100 ML IV ONE (10:31)
--- NOTE | 2016-10-14 10:34 | PDOC ---
PROGRESS NOTES Subjective Subjective just had liver biopsy Objective Objective Vital Signs Date Time Temp Pulse Resp B/P Pulse Ox O2 Delivery O2 Flow Rate FiO2 10/14/16 10:32 98.4 70 18 104/70 99 Room Air 98.4 Intake and Output 10/14/16 07:00 Intake Total 240 ml Balance 240 ml Intake Oral 240 ml # Voids 7 Physical Exam Abdomen: Normal bowel sounds, Soft Heart: Normal S1, Normal S2 Extremities: No clubbing General: Alert, Oriented X3 HEENT: Atraumatic Lungs: Clear to auscultation Neck: Supple Neuro: Normal speech Psych/Mental Status: Mental status NL Skin: No breakdown Diagnosis Problem List Problems Medical Problems: (1) Abdominal pain Status: Acute (2) GERD (gastroesophageal reflux disease) Status: Acute (3) Nausea and vomiting Status: Acute (4) Rash Status: Acute Assessment Assessment Problems Medical Problems: (1) Abdominal pain Status: Acute (2) GERD (gastroesophageal reflux disease) Status: Acute (3) Nausea and vomiting Status: Acute (4) Rash Status: Acute FINAL IMPRESSION: 1. Significant weight loss. 2. Purpuric rashes lesions in the skin. 3. Family history of sarcoidosis. 4. Elevated liver function tests. PLAN: d/c home later today. Liver biopsy today. had skin biopsy rt arm. HIV and hepatitis test-neg CT scan spleen lesions.liver lesions,small lymphadenopathy in chest. At this time, CT of the chest, abdomen and pelvis. GI was consulted. We have Dermatology as well as Rheumatology consult is if dealing with any connective tissue diseases or immune mediated disease. Problems: Plan Plan of Care Problems Medical Problems: (1) Abdominal pain Status: Acute (2) GERD (gastroesophageal reflux disease) Status: Acute (3) Nausea and vomiting Status: Acute (4) Rash Status: Acute Comment Review of Relevant I have reviewed the following items di (where applicable) has been applied. Labs Laboratory Tests Test 10/14/16 05:00 Total Bilirubin 0.7mg/dL (0.2-1.0) Direct Bilirubin 0.2mg/dL (0.0-0.2) Aspartate Amino Transf (AST/SGOT) 53U/L (15-37) Alanine Aminotransferase (ALT/SGPT) 51U/L (14-59) Alkaline Phosphatase 246U/L (46-116) Total Protein 6.3g/dL (6.4-8.2) Albumin 2.7g/dL (3.4-5.0) Microbiology 10/12/16 Blood Culture - Preliminary, Resulted NO GROWTH AFTER 2 DAYS Medications Current Medications Albumin Human (Albuminar) 100 ml @ As Directed STK-MED ONCE IV ; Start at 10:31; Stop 10/14/16 at 10:32; Status DC Fentanyl Citrate (Fentanyl 2ml Vial) 100 mcg 1X ONCE IV Last administered on 09:00; Start 10/14/16 at 09:00; Stop 10/14/16 at 09:02; Status DC Flumazenil (Romazicon) 0.5 mg STK-MED ONCE IV ; Start 10/14/16 at 08:48; Stop at 08:49; Status DC Gelatin (Gelfoam Size 12-7mm) 1 each STK-MED ONCE .ROUTE ; Start 10/14/16 at 08 :21; Stop 10/14/16 at 08:22; Status DC Lidocaine HCl 20 ml 20 ml 1X ONCE IJ Last administered on 10/14/16 09:00; Start 10/14/16 at 09:00; Stop 10/14/16 at 09:02; Status DC Lidocaine/Sodium Bicarbonate (Buffered Lidocaine 1%) 20 ml STK-MED ONCE IJ ; Start 10/14/16 at 08:00; Stop 10/14/16 at 08:01; Status DC Midazolam HCl (Versed) 2 mg 1X ONCE IV Last administered on 10/14/16 09:00; Start 10/14/16 at 09:00; Stop 10/14/16 at 09:02; Status DC Midazolam HCl (Versed) 2 mg STK-MED ONCE .ROUTE ; Start 10/14/16 at 08:47; Stop 10/14/16 at 08:48; Status DC Naloxone HCl (Narcan) 0.4 mg STK-MED ONCE .ROUTE ; Start 10/14/16 at 08:48; Stop 10/14/16 at 08:49; Status DC Vitals/I & O Vital Sign - Last 24 Hours 10/13/16 10/13/16 10/13/16 10/13/16 10:37 14:50 19:00 19:58 Temp 98.9 99.3 99.9 98.9 99.3 99.9 Pulse 81 75 77 Resp 16 B/P 103/71 105/73 110/78 Pulse Ox 96 96 100 100 O2 Delivery Room Air Room Air Room Air Room Air 10/13/16 10/13/16 10/14/16 10/14/16 20:45 23:04 03:00 07:00 Temp 99.2 98.7 98.1 99.2 98.7 98.1 Pulse 78 75 81 Resp B/P 100/73 107/74 109/76 Pulse Ox 100 100 100 100 O2 Delivery Room Air Room Air Room Air Room Air 10/14/16 10/14/16 10/14/16 10/14/16 09:00 09:22 09:23 09:28 Pulse 75 75 71 Resp 16 12 Pulse Ox 99 100 100 100 O2 Delivery Room Air Room Air Room Air Room Air 10/14/16 10/14/16 10/14/16 09:33 09:39 10:32 Temp 98.4 98.4 Pulse 70 78 70 Resp 07 10 18 B/P 104/70 Pulse Ox 100 99 99 O2 Delivery Room Air Room Air Room Air Intake and Output 10/13/16 10/13/16 10/14/16 15:00 23:00 07:00 Intake Total 240 ml Balance 240 ml FERNANDO FLOWER MD Oct 14, 2016 10:34
--- NOTE | 2016-10-14 10:35 | RAD ---
Procedure: CT-guided liver biopsy Clinical Indication: 36-year-old female with a innumerable confluence small liver masses, splenic masses, mediastinal and perihilar masses. Suspect sarcoidosis versus lymphoma versus metastasis versus atypical infection. Sedation: Conscious sedation was administered for 22 minutes. The patient was monitored by a qualified independent observer throughout the time of sedation. Please refer to the medical record for exact doses of medications utilized to achieve moderate sedation. Antibiotics: None Sterility: The procedure was performed in its entirety using appropriate elements of sterile technique. Consent: The procedure was explained in its entirety to the patient or the patients designated employee representative by a member of the treatment team, including a discussion of the risks, benefits and commonly accepted alternatives to the procedure, as well as the expected consequences of no therapy whatsoever. Discussion of the risks included, but was not limited to, those that are most frequent and those that are rare but possibly severe or life-threatening, as well as the possibility of unforeseen complications. Technique and Findings: Following informed consent, the patient was prepped and draped in usual sterile fashion. Preliminary CT scan of the area of interest was performed. 1% lidocaine was used to achieve local anesthesia over the area of interest. A small dermatotomy was made. Under periodic CT surveillance, a 17-gauge needle guide was advanced into the left lobe of the liver and 9 separate 18-gauge core biopsy specimens were obtained from different regions within the left lobe of the liver. The specimens were divided between formalin for histopathologic analysis, RPMI for cytologic analysis, and saline for microbiologic analysis. Gelfoam pledgets were applied as the needle guide was removed and hemostasis was achieved with manual compression. Complications: No immediate Impression: 1. CT-guided liver biopsy as described PQRS Compliance Statement: One or more of the following individualized dose reduction techniques were utilized for this examination: 1. Automated exposure control 2. Adjustment of the mA and/or kV according to patient size 3. Use of iterative reconstruction technique
[2016-10-14] MEDS ORDERED: HYDR-2678 PO (10:37)
--- NOTE | 2016-10-14 11:11 | PDOC ---
Subjective: Subjective: Better today w/ less abd pain. Eating some w/o vomiting. Objective: Objective: S/p liver biopsy this morning. Vital Signs: Vital Signs Date Time Temp Pulse Resp B/P Pulse Ox O2 Delivery O2 Flow Rate FiO2 10/14/16 10:32 98.4 70 18 104/70 99 Room Air 98.4 Labs: Laboratory Tests Test 10/14/16 05:00 Total Bilirubin 0.7mg/dL Direct Bilirubin 0.2mg/dL Aspartate Amino Transf (AST/SGOT) 53U/L Alanine Aminotransferase (ALT/SGPT) 51U/L Alkaline Phosphatase 246U/L Total Protein 6.3g/dL Albumin 2.7g/dL PE: GEN: NAD, looks better LUNGS: CTAB HEART: RRR ABD: less tender NEURO/PSYCH: A & O 3 A/P: Fever/sweats, weight loss, rash, abd pain -GI, ID, onc, rheum, derm following; s/p skin biopsy 10/12, s/p liver biopsy 10/14 -PRISCILLA, AMA, ASMA, LYNSEY, pending Abnormal CT -splenic nodules and hepatic lesions, subcarinal/hilar/celiac region adenopathy , tiny LLL pulm nodule FH sarcoidosis GERD, vomiting - improved -on PPI and Tums -- Note plans to DC today. Follow-up w/ GI in 2-4 weeks. BRIGITTE LOPEZ Oct 14, 2016 11:11
[2016-10-14 11:23] LABS: ANGIOTENSIN CONVERTING ENZYME 49 U/L (14-82); MITOCHONDRIAL ABDY 4.4 Units (0.0-20.0); SMOOTH MUSCLE AB 39 Units (0-19)
--- NOTE | 2016-10-14 13:03 | PDOC ---
PROGRESS NOTES Subjective Subjective Still c/o pain in abdomen. Her rt hand pain and swelling improved. Still has rash on rt arm and new rash on rt leg. Objective Objective Vital Signs Date Time Temp Pulse Resp B/P Pulse Ox O2 Delivery O2 Flow Rate FiO2 10/14/16 10:32 98.4 70 18 104/70 99 Room Air 98.4 Intake and Output 10/14/16 07:00 Intake Total 240 ml Balance 240 ml Intake Oral 240 ml # Voids 7 Physical Exam Heart: Regular rate, Normal S1, Normal S2, No murmurs, Gallops General: Alert, Oriented X3, Cooperative, No acute distress MUSCULOSKELETAL: No joint tenderness, No deformity, No swelling, No muscular tenderness noted, Full range of motion without pain Neck: Supple, No JVD, No thyromegaly Psych/Mental Status: Mental status NL, Mood NL Skin: Other (erythmatous plaque on rt arm amd rt thigh ) Assessment Assessment 1. Right hand pain, improved 2. Skin rash. 3. Fever. 4. Undifferentiated autoimmune disease versus viral infection. 5. Significant weight loss. 6. Elevated liver functions. Plan Plan of Care Reviewed labs. Pending liver and skin biopsy result. Advised to take NSAID prn. No clear etiology. Further recommendation after all result. F/u in clinic in 1- 2 weeks. Comment Review of Relevant I have reviewed the following items di (where applicable) has been applied. Labs Laboratory Tests Test 10/12/16 14:30 10/13/16 04:16 10/13/16 10:34 10/14/16 05:00 Urine Legionella Antigen Negative (Negative) White Blood Count 4.5x10^3/uL (4.0-11.0) Red Blood Count 3.58x10^6/uL (3.50-5.40) Hemoglobin 10.8g/dL (12.0-15.5) Hematocrit 32.4% (36.0-47.0) Mean Corpuscular Volume 91fL (79-100) Mean Corpuscular Hemoglobin 30pg (25-35) Mean Corpuscular Hemoglobin Concent 33g/dL (31-37) Red Cell Distribution Width 13.1% (11.5-14.5) Platelet Count 316x10^3/uL (140-400) Neutrophils (%) (Auto) 63% (31-73) Lymphocytes (%) (Auto) 20% (24-48) Monocytes (%) (Auto) 12% (0-9) Eosinophils (%) (Auto) 4% (0-3) Basophils (%) (Auto) 1% (0-3) Neutrophils # (Auto) 2.8x10^3uL (1.8-7.7) Lymphocytes # (Auto) 0.9x10^3/uL (1.0-4.8) Monocytes # (Auto) 0.5x10^3/uL (0.0-1.1) Eosinophils # (Auto) 0.2x10^3/uL (0.0-0.7) Basophils # (Auto) 0.0x10^3/uL (0.0-0.2) Sodium Level 141mmol/L (136-145) Potassium Level 4.2mmol/L (3.5-5.1) Chloride Level 106mmol/L (98-107) Carbon Dioxide Level 25mmol/L (21-32) Anion Gap 10 (6-14) Blood Urea Nitrogen 9mg/dL (7-20) Creatinine 0.8mg/dL (0.6-1.0) Estimated GFR (Cockcroft-Gault) 98.2 BUN/Creatinine Ratio 11 (6-20) Glucose Level 98mg/dL (70-99) Calcium Level 8.6mg/dL (8.5-10.1) Total Bilirubin 0.9mg/dL (0.2-1.0) 0.7mg/dL (0.2-1.0) Aspartate Amino Transf (AST/SGOT) 41U/L (15-37) 53U/L (15-37) Alanine Aminotransferase (ALT/SGPT) 52U/L (14-59) 51U/L (14-59) Alkaline Phosphatase 255U/L (46-116) 246U/L (46-116) Total Protein 7.1g/dL (6.4-8.2) 6.3g/dL (6.4-8.2) Albumin 2.8g/dL (3.4-5.0) 2.7g/dL (3.4-5.0) Albumin/Globulin Ratio 0.7 (1.0-1.7) Prothrombin Time 16.8SEC (11.7-14.0) Prothromb Time International Ratio 1.5 (0.8-1.1) Direct Bilirubin 0.2mg/dL (0.0-0.2) Laboratory Tests Test 10/14/16 05:00 Total Bilirubin 0.7mg/dL (0.2-1.0) Direct Bilirubin 0.2mg/dL (0.0-0.2) Aspartate Amino Transf (AST/SGOT) 53U/L (15-37) Alanine Aminotransferase (ALT/SGPT) 51U/L (14-59) Alkaline Phosphatase 246U/L (46-116) Total Protein 6.3g/dL (6.4-8.2) Albumin 2.7g/dL (3.4-5.0) Microbiology 10/12/16 Blood Culture - Preliminary, Resulted NO GROWTH AFTER 2 DAYS Medications Current Medications Fentanyl Citrate 25 mcg 25 mcg PRN Q15MIN PRN IV PAIN GREATER THAN 3/10 Last administered on 10/12/16 14:51; Start 10/12/16 at 05:00; Stop 10/13/16 at 00:00 ; Status DC Sodium Chloride (Iv Sodium Chloride 0.9% 1000ml Bag) 1,000 ml @ 1,000 mls/hr Q1H IV Last administered on 10/12/16 05:10; Start 10/12/16 at 05:30; Stop at 06:29; Status DC Ondansetron HCl (Zofran) 4 mg 1X ONCE IV Last administered on 10/12/16 05:10 ; Start 10/12/16 at 05:30; Stop 10/12/16 at 05:31; Status DC Ketorolac Tromethamine (Toradol) 10 mg 1X ONCE IV Last administered on 05:12; Start 10/12/16 at 05:30; Stop 10/12/16 at 05:31; Status DC Diphenhydramine HCl (Benadryl) 25 mg 1X ONCE IVP Last administered on 05:10; Start 10/12/16 at 05:30; Stop 10/12/16 at 05:31; Status DC Ondansetron HCl 4 mg 4 mg PRN Q8HRS PRN IV NAUSEA/VOMITING Last administered on 10/12/16 14:52; Start 10/12/16 at 06:45; Stop 10/13/16 at 06:44; Status DC Sodium Chloride (Iv Sodium Chloride 0.9% 1000ml Bag) 1,000 ml @ 125 mls/hr Q8H IV Last administered on 10/12/16 20:55; Start 10/12/16 at 06:43; Stop at 06:42; Status DC Acetaminophen (Tylenol) 650 mg PRN Q4HRS PRN PO FEVER; Start 10/12/16 at 06:45 ; Stop 10/13/16 at 06:44; Status DC Pantoprazole Sodium (Protonix) 40 mg DAILYAC PO Last administered on 10/13/16 09:23; Start 10/12/16 at 10:00 Calcium Carbonate/ Glycine (Tums) 500 mg PRN AFTMEALHC PRN PO INDIGESTION Last administered on 10/13/16 09:23; Start 10/12/16 at 09:15 Polyethylene Glycol (miraLAX PACKET) 17 gm PRN DAILY PRN PO CONSTIPATION Last administered on 10/13/16 09:23; Start 10/12/16 at 09:15 Iohexol (Omnipaque 240 Mg/ml) 30 ml 1X ONCE PO Last administered on 10/12/16 11:15; Start 10/12/16 at 11:15; Stop 10/12/16 at 11:16; Status DC Iohexol (Omnipaque 300 Mg/ml) 75 ml 1X ONCE IV Last administered on 10/12/16 12:29; Start 10/12/16 at 11:15; Stop 10/12/16 at 11:16; Status DC Info (Do NOT chart on this entry -- for MONITORING) 1 each PRN DAILY PRN MC SEE COMMENTS; Start 10/12/16 at 11:30; Stop 10/14/16 at 11:29; Status DC Diphenhydramine HCl (Benadryl) 25 mg PRN Q6HRS PRN PO ITCHING Last administered on 10/12/16 19:55; Start 10/12/16 at 19:45 Fentanyl Citrate (Fentanyl 2ml Vial) 25 mcg PRN Q3HRS PRN IV severe pain Last administered on 10/13/16 19:58; Start 10/12/16 at 23:15 Ondansetron HCl 8 mg 8 mg PRN Q6HRS PRN IV NAUSEA/VOMITING Last administered on 10/14/16 07:54; Start 10/13/16 at 10:15 Potassium Chloride/Dextrose/ Sod Cl (KCl 20 Meq In D5W-NS) 1,000 ml @ 75 mls/ hr [id number] IV Last administered on 10/14/16 00:38; Start 10/13/16 at 10:15 Lidocaine/Sodium Bicarbonate (Buffered Lidocaine 1%) 20 ml STK-MED ONCE IJ ; Start 10/14/16 at 08:00; Stop 10/14/16 at 08:01; Status DC Gelatin (Gelfoam Size 12-7mm) 1 each STK-MED ONCE .ROUTE ; Start 10/14/16 at 08 :21; Stop 10/14/16 at 08:22; Status DC Midazolam HCl (Versed) 2 mg STK-MED ONCE .ROUTE ; Start 10/14/16 at 08:47; Stop 10/14/16 at 08:48; Status DC Naloxone HCl (Narcan) 0.4 mg STK-MED ONCE .ROUTE ; Start 10/14/16 at 08:48; Stop 10/14/16 at 08:49; Status DC Flumazenil (Romazicon) 0.5 mg STK-MED ONCE IV ; Start 10/14/16 at 08:48; Stop at 08:49; Status DC Midazolam HCl (Versed) 2 mg 1X ONCE IV Last administered on 10/14/16 09:00; Start 10/14/16 at 09:00; Stop 10/14/16 at 09:02; Status DC Fentanyl Citrate (Fentanyl 2ml Vial) 100 mcg 1X ONCE IV Last administered on 09:00; Start 10/14/16 at 09:00; Stop 10/14/16 at 09:02; Status DC Lidocaine HCl 20 ml 20 ml 1X ONCE IJ Last administered on 10/14/16 09:00; Start 10/14/16 at 09:00; Stop 10/14/16 at 09:02; Status DC Albumin Human (Albuminar) 100 ml @ As Directed STK-MED ONCE IV ; Start at 10:31; Stop 10/14/16 at 10:32; Status DC Active Scripts Active Lortab 5-325 mg Tablet (Hydrocodone/Acetaminophen) 1 Each Tablet 1 Tab PO PRN Q6HRS PRN Nexium Capsule (Esomeprazole Magnesium) 40 Mg Capsule.dr 1 Cap PO DAILY Vitals/I & O Vital Sign - Last 24 Hours 10/13/16 10/13/16 10/13/16 10/13/16 14:50 19:00 19:58 20:45 Temp 99.3 99.9 99.3 99.9 Pulse 75 77 Resp 20 16 15 B/P 105/73 110/78 Pulse Ox 96 100 100 100 O2 Delivery Room Air Room Air Room Air Room Air 10/13/16 10/14/16 10/14/16 10/14/16 23:04 03:00 07:00 09:00 Temp 99.2 98.7 98.1 99.2 98.7 98.1 Pulse 78 75 81 Resp 14 B/P 100/73 107/74 109/76 Pulse Ox 100 100 100 99 O2 Delivery Room Air Room Air Room Air Room Air 10/14/16 10/14/16 10/14/16 10/14/16 09:22 09:23 09:28 09:33 Pulse 75 75 71 70 Resp 16 16 12 12 Pulse Ox 100 100 100 100 O2 Delivery Room Air Room Air Room Air Room Air 10/14/16 10/14/16 09:39 10:32 Temp 98.4 98.4 Pulse 78 70 Resp 18 B/P 104/70 Pulse Ox 99 99 O2 Delivery Room Air Room Air Intake and Output 10/13/16 10/13/16 10/14/16 15:00 23:00 07:00 Intake Total 240 ml Balance 240 ml NANCIE REYES MD Oct 14, 2016 13:03
--- NOTE | 2016-10-14 13:59 | PATHOLOGY ---
PATHOLOGY REPORT * * * * * * * * FINAL DIAGNOSIS: Skin, right arm: - Superficial and deep perivascular dermatitis, mixed cell type. 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 Please correlate clinically. (SAS:mgr; d/t: 10/14/16) REPORT ELECTRONICALLY SIGNED BY: Bre Gutierrez M.D., Dermatopathologist DATE/TIME: 10/14/2016 13:58 * * * * * * * * MICROSCOPIC DESCRIPTION: Multiple levels of a punch biopsy of skin shows mild hyperkeratosis. The epidermis is unremarkable. There is a superficial and deep perivascular lymphohistiocytic inflammatory cell infiltrate with both eosinophils and neutrophils. Eosinophils and neutrophils are also seen within the surrounding dermal interstitium. GROSS PATHOLOGY: Received in formalin labeled "Komal Serrano and R arm," is a punch biopsy measuring 0.4 x 0.4 x 0.6 cm in maximum dimensions. The epidermal surface is nogueira, wrinkled, and grossly unremarkable. The margin is inked, and the specimen is entirely submitted in cassette state A1. (TTL; 10/13/2016) INITIAL CPT CODE(S): A; 89419 Professional services performed by [employer], [facility] [place] [address]. Technical services performed by [employer] at [address] [place] [address]. SPECIMEN(S) RECEIVED: A.Punch biopsy right arm CLINICAL HISTORY: Urticarial lesions; urticarial vasculitis PATIENT: KOMAL SERRANO /AGE: 1 1980 (Age: 36) PATIENT #: [id number] ALT CASE #: SPECIMEN COLLECTION DATE: 10/12/2016 SPECIMEN RECEIVED DATE: 10/13/2016 [employer] - [address] [place] [address] - PHONE: [phone] * * * END OF REPORT * * *
--- NOTE | 2016-10-14 22:02 | PDOC ---
Provider Note Provider Note Discharge summary dictated. #[id number] FERNANDO FLOWER MD Oct 14, 2016 22:02
--- NOTE | 2016-10-14 23:51 | DS ---
DATE OF DISCHARGE: 10/14/2016 REASON FOR ADMISSION TO THE HOSPITAL: Skin rash, abdominal pain, weight loss. CONSULTATIONS: 1. Dr. Melvin. 2. Dr. Keller. 3. Dr. De La Cruz. 4. Dr. Ford [facility]. PROCEDURES DONE: 1. Skin biopsy. 2. Liver biopsy. OTHER PROCEDURES DONE: CT of the chest, abdomen and pelvis. HOSPITAL COURSE: Komal Gonsales is a 36-year-old female. She has been not feeling well, losing weight. She developed some fleeting rashes on the skin, got progressively worse now. She has been having nausea, vomiting, abdominal pain, was admitted to the hospital, had a rash in the upper extremity. 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 Ultrasound of the abdomen, no abnormality detected. The patient had a CT of the chest, abdomen and pelvis, which shows multiple splenic nodules, small confluent hepatic lesions, diagnosis would be sarcoidosis versus lymphoma and subcarinal mild hilar regional adenopathy, tiny left lobe pulmonary nodule and the patient was seen by Oncology, had a CT guided liver biopsy done. The patient also had biopsy of the skin lesion and it was felt that she could be discharged to home and follow as an outpatient. HIV test and other immunological tests were negative. At this point, white count was 5, hemoglobin 12, platelets 260. LFTs show alkaline phosphatase 330, came down to 250; AST 75, came down to 53; ALT 77, came down to 51. Angiotensin converting enzyme is 49, normal range. Urine was negative. Immunology: PRISCILLA was negative, antimitochondrial antibody was negative and normal, antismooth muscle antibody was 39, normal is up to 20.Hepatitis was negative. HIV is nonreactive. Mycoplasma serology was negative. Urine legionella was negative. CMV IgG antibody was 9.65. CMV IgM antibody was negative. Matias Adair virus antibody was strongly positive, nuclear IgG index antibody. IMP:1.weight loss abnormal. 2.Lesions in Liver and spleen. The patient wanted to be discharged today, follow up as outpatient to discuss liver biopsy, skin biopsy and review of the laboratory data. FERNANDO FLOWER MD DR: ALISHA/di JOB#: [id number] / [id number] KEL
--- NOTE | 2016-10-16 12:20 | PATHOLOGY ---
PATHOLOGY REPORT * * * * * * * * FINAL DIAGNOSIS: Liver biopsy: - Non-caseating granulomas. See comment. COMMENT: Sections of the liver biopsy reveal several segments of liver tissue. The hepatic architecture is preserved. There are several scattered small and larger non-caseating granulomas. The granulomas are composed of central clusters of histiocytes, which are surrounded by variable numbers of chronic inflammatory cells and eosinophils. A portion of the specimen is submitted for marker studies by flow cytometry. Lymphocytes comprise 37.2% of total cells. T-cells comprise 50% of lymphoid cells and are CD3 positive and CD5 positive with a CD4/CD8 ratio of about 0.5. Mature B-cells comprise 8% of lymphoid cells and are too few to assess clonality, but appear polyclonal with a kappa:lambda ratio of 3.0. There is no flow immunophenotypic evidence of a lymphoproliferative disorder based on the limited antibody panel. Special stains for acid-fast bacilli and fungi are obtained and yield the following results: AFB stain: negative for acid-fast bacilli GMS: negative for yeast/fungi The non-caseating granulomas are consistent with a diagnosis of sarcoidosis. Correlate clinically. (JPM:mgmissy; d/t: 10/16/16) Special Stains: AFB, GMS REPORT ELECTRONICALLY SIGNED BY: Ismael Anton M.D. DATE/TIME: 10/16/2016 12:20 * * * * * * * * GROSS PATHOLOGY: Received in formalin labeled "Komal Serrano and liver tissue," are 3 distinct needle cores of nogueira soft tissue ranging from 1.0 to 1.5 cm in length, which are submitted entirely in cassette A1. (TTL; 10/14/2016) INITIAL CPT CODE(S): A; 34425, 12693, 27108 Professional services performed by [facility] at [facility] [address] [place] [address] Technical services performed by [facility] at [address] [place] [address], [address], [place] [address]. SPECIMEN(S) RECEIVED: A.Liver, needle biopsy CLINICAL HISTORY: Nodules, sarcoidosis vs. lymphoma, family history of sarcoid, multiple liver and splenic nodules and generalized lymphadenopathy, abdominal pain, weight loss, night sweats PATIENT: KOMAL SERRANO /AGE: 1 1980 (Age: 36) PATIENT #: [id number] ALT CASE #: SPECIMEN COLLECTION DATE: 10/14/2016 SPECIMEN RECEIVED DATE: 10/14/2016 [facility] - [address] [place] [address] - PHONE: [phone] * * * END OF REPORT * * *
== END 2016-10-14 13:27 | disposition home or self-care (01) | DRG 842 ==
LOC: ER 04:09 → 5 SOUTH 06:11 → OBSVTOIN 10:33
PROVIDERS: ADMIT Internal Medicine; ATTEND Internal Medicine
PROC: 0HBBXZX Excision of Right Upper Arm Skin, External Approach, Diagnostic (ICD-10-PCS; principal; 2016-10-12)
PROC: 0FB23ZX Excision of Left Lobe Liver, Percutaneous Approach, Diagnostic (ICD-10-PCS; 2016-10-14)
DX: C85.83 Other specified types of non-Hodgkin lymphoma, intra-abdominal lymph nodes (principal); D86.89 Sarcoidosis of other sites; I77.6 Arteritis, unspecified; L98.9 Disorder of the skin and subcutaneous tissue, unspecified; R10.9 Unspecified abdominal pain; F12.90 Cannabis use, unspecified, uncomplicated; K21.9 Gastro-esophageal reflux disease without esophagitis; K59.00 Constipation, unspecified; K76.89 Other specified diseases of liver; B27.00 Gammaherpesviral mononucleosis without complication; Z88.6 Allergy status to analgesic agent; Z88.0 Allergy status to penicillin; Z87.891 Personal history of nicotine dependence; Z80.49 Family history of malignant neoplasm of other genital organs; Z88.2 Allergy status to sulfonamides; Z88.8 Allergy status to other drugs, medicaments and biological substances
CPT/HCPCS: 36415; 47000; 71020; 71260; 74177; 76705; 77012; 80053; 80074; 80076; 81001; 81025; 82164; 83520; 83690; 85027; 85610; 86255; 86644; 86645; 86663; 86664; 86703; 86738; 87040; 87071; 87075; 87086; 87102; 87116; 87449; 87804; 88184; 88185; 88305; 88307; 88312; 93005; 96361; 96374; 96375; C1892; G0378; G0379; G0481; J1200; J1885; J2250; J2405; J3010; J7030; Q0163; Q9966; Q9967; 83516; 99285-25

== ENCOUNTER 2016-12-11 17:53 | Emergency (ER) | payer OTHER ==
[~2016-12-11 17:53] MED LIST changes: +HYDR-2678 PO
[2016-12-11] MEDS ORDERED: hydrOXYzine 10 MG TABLET PO STA (19:20)
[2016-12-11] MEDS ORDERED: HYDR25CA PO (19:22)
--- NOTE | 2016-12-11 19:22 | PHYS DOC ---
Past Medical History Past Medical History: GERD Additional Past Medical Histor: SARCOIDOSIS Past Surgical History: Tonsillectomy Alcohol Use: None Drug Use: Marijuana Adult General Chief Complaint Chief Complaint: ANXIETY/PANIC ATTACK HPI HPI Patient is a 36 year old female who presents with anxious feeling for the past few days since starting multiple medications for sarcoidosis. She is concerned about prednisone causing this so she has decreased her dose. She continues to have intermittent anxious feeling. She would like a medication to help with her symptoms. Review of Systems Review of Systems Constitutional: Denies fever or chills [] Eyes: Denies change in visual acuity, redness, or eye pain [] HENT: Denies nasal congestion or sore throat [] Respiratory: Denies cough or shortness of breath [] Cardiovascular: No additional information not addressed in HPI [] GI: Denies abdominal pain, nausea, vomiting, bloody stools or diarrhea [] : Denies dysuria or hematuria [] Musculoskeletal: Denies back pain or joint pain [] Integument: Denies rash or skin lesions [] Neurologic: Denies headache, focal weakness or sensory changes [] Endocrine: Denies polyuria or polydipsia [] Current Medications Current Medications Current Medications Medications (Trade) Dose Ordered Sig/Mejia Start Time Stop Time Status Last Admin Dose Admin Hydroxyzine HCl (Atarax) 10 mg 1X STAT 12/11/16 19:20 12/11/16 19:23 DC 12/11/16 19:29 10 MG Allergies Allergies Allergies Coded Allergies Type Severity Reaction Last Updated Verified Penicillins Allergy Intermediate 10/12/16 Yes codeine Allergy Intermediate Itching. 02/26/16 Yes sulfamethoxazole Adverse Reaction Intermediate Causes Yeast infection. 02/26/16 Yes trimethoprim Adverse Reaction Intermediate Causes Yeast infection. 02/26/16 Yes Physical Exam Physical Exam Constitutional: Well developed, well nourished, no acute distress, non-toxic appearance. [] HENT: Normocephalic, atraumatic, bilateral external ears normal, oropharynx moist, no oral exudates, nose normal. [] Eyes: PERRLA, EOMI. [] Neck: Normal range of motion, supple. [] Cardiovascular:Heart rate regular rhythm [] Lungs & Thorax: Bilateral breath sounds clear to auscultation [] Abdomen: Bowel sounds normal, soft, no tenderness. [] Skin: Warm, dry, no erythema, no rash. [] Back: Normal ROM. [] Extremities: No tenderness, ROM intact, no edema. [] Neurologic: Alert and oriented X 3, normal motor function, normal sensory function, no focal deficits noted. [] Psychologic: Affect normal, judgement normal, mood normal. [] Current Patient Data Vital Signs Vital Signs Date Time Temp Pulse Resp B/P (MAP) Pulse Ox O2 Delivery O2 Flow Rate FiO2 12/11/16 19:31 74 24 132/82 (99) 100 Room Air 12/11/16 18:32 98.0 98.0 Course & Med Decision Making Course & Med Decision Making Discussed symptomatic care and need for follow up with PCP. Return precautions given. She understands and agrees with plan. Dragon Disclaimer Dragon Disclaimer This electronic medical record was generated, in whole or in part, using a voice recognition dictation system. Departure Departure Impression: Primary Impression: Anxiety Disposition: HOME, SELF-CARE Condition: STABLE Referrals: FERNANDO FLOWER MD (PCP) Patient Instructions: Anxiety and Panic Attacks, [id number] Additional Instructions: Take Vistaril as needed for anxiety. Do not drink, drive or operate heavy machinery as this medication may make you sleepy. Follow-up with your primary care doctor. Return for any concerns. Scripts Hydroxyzine Pamoate (VISTARIL) 25 Mg Capsule 1 CAP PO TID Y for ANXIETY / AGITATION, #15 CAP 0 Refills Prov: Angelo GARDUNO MD 12/11/16 Angelo GARDUNO MD December 11, 2016 19:22
[2016-12-11 19:31] VITALS: BP 132/82
== END 2016-12-11 19:43 | disposition home or self-care (01) ==
LOC: ER 19:35
DX: F41.9 Anxiety disorder, unspecified (principal); K21.9 Gastro-esophageal reflux disease without esophagitis; F12.10 Cannabis abuse, uncomplicated; Z88.1 Allergy status to other antibiotic agents; Z88.5 Allergy status to narcotic agent
CPT/HCPCS: 99283

== ENCOUNTER 2016-12-12 23:24 | Inpatient (IN) | payer OTHER ==
[~2016-12-12] VITALS: Ht 175.3 cm; Wt 70.3 kg
[~2016-12-12 23:24] MED LIST changes: +HYDR25CA PO
[2016-12-13] MEDS ORDERED: HALOPERIDOL LACTATE 5 MG/ML VIAL. ONE
[2016-12-13] MEDS ORDERED: IV NORMAL SALINE 1000ML BAG 1,000 ML IV SCH
[2016-12-13] MEDS ORDERED: HALOPERIDOL LACTATE 5 MG/ML VIAL. IVP ONE (00:15)
[2016-12-13 00:16] LABS: BILIRUBIN,URINE NEGATIVE (NEG); GLUCOSE,URINE NEGATIVE (NEG); NITRITE,URINE NEGATIVE (NEG); PH,URINE 5.5; PROTEIN,URINE 30 mg/dL (NEG-TRACE); UROBILINOGEN,URINE 0.2 mg/dL (0.2 mg/dL)
[2016-12-13 00:18] LABS: BASO % 0 % (0-3); EOS % 1 % (0-3); HEMATOCRIT 41.6 % (36.0-47.0); HEMOGLOBIN 14.3 g/dL (12.0-15.5); LYMPH # 1.4 x10^3/uL (1.0-4.8); LYMPH % 16 % (24-48); MEAN CORPUSCULAR HEMOGLOBIN 31 pg (25-35); MEAN CORPUSCULAR HGB CONC 35 g/dL (31-37); MEAN CORPUSCULAR VOLUME 90 fL (79-100); MONO % 7 % (0-9); NEUT % 77 % (31-73); PLATELET COUNT 335 x10^3/uL (140-400); RED BLOOD COUNT 4.61 x10^6/uL (3.50-5.40); RED CELL DISTRIBUTION WIDTH 17.2 % (11.5-14.5); WHITE BLOOD COUNT 8.7 x10^3/uL (4.0-11.0)
[2016-12-13 00:21] LABS: BARBITURATES NEG (NEG); BENZODIAZEPINES NEG (NEG); CANNABINOIDS POS (NEG); COCAINE NEG (NEG); METHADONE NEG (NEG); OPIATES NEG (NEG); PHENCYCLIDINE NEG (NEG)
[2016-12-13 00:29] LABS: ALBUMIN 4.3 g/dL (3.4-5.0); CALCIUM 10.3 mg/dL (8.5-10.1); CREATININE 0.9 mg/dL (0.6-1.0); GFR 85.7; POTASSIUM 3.3 mmol/L (3.5-5.1); TOTAL BILIRUBIN 1.4 mg/dL (0.2-1.0); TOTAL PROTEIN 8.6 g/dL (6.4-8.2)
[2016-12-13 00:30] LABS: NEG OBC SER NEG; POS OBC SER POS
[2016-12-13 00:31] LABS: BACTERIA,URINE FEW /HPF (0-FEW); SQUAMOUS EPITHELIAL CELL,UR MOD /LPF
[2016-12-13] MEDS ORDERED: POTASSIUM CL 40MEQ IN 0.9%NACL 1,000 ML IV ONE (01:00)
[2016-12-13] MEDS ORDERED: KETOROLAC 15 MG/ML VIAL. IV ONE (01:00)
[2016-12-13] MEDS ORDERED: fentaNYL PF VIAL 100 MCG/2 ML VIAL IV PRN ×2 (01:00→02:30)
--- NOTE | 2016-12-13 01:46 | ED.ADGEN ---
Past Medical History Past Medical History: GERD Additional Past Medical Histor: SARCOIDOSIS Past Surgical History: Tonsillectomy Alcohol Use: None Drug Use: Marijuana Adult General Chief Complaint Chief Complaint: NAUSEA/VOMITING/DIARRHA HPI HPI Patient is a 36 year old woman, history of sarcoidosis, abdominal pain, GERD, who presents to the emergency department with a complaint of nausea, vomiting abdominal pain for the past 24 hours. Patient states she is expressing similar to previously with her sarcoidosis, states she is on prednisone, which previously did help with her symptoms but although she's been taking the prednisone has not been helping today. She denies any chest pain or shortness of breath, any sick contacts or bad food exposures, states that she did experience fever at home today. Is afebrile in the emergency department without ) expanding administered. States the pain is cramping located in her lower and middle abdomen, denies any urinary complaints, any injuries, any recent travel or surgery. No new medications or missed doses of medication. She states she's had multiple episodes of emesis food, fluid and now bile. Patient complaining of significant nausea, with vomiting in the ED. Patient denies drugs, alcohol or cigarettes. Review of Systems Review of Systems Constitutional: Denies fever or chills. [] Eyes: Denies change in visual acuity. [] HENT: Denies nasal congestion or sore throat. [] Respiratory: Denies cough or shortness of breath. [] Cardiovascular: Denies chest pain or edema. [] GI: Crampy abdominal pain, nausea, vomiting, no bloody stools or diarrhea. : Denies dysuria. [] Musculoskeletal: Denies back pain or joint pain. [] Integument: Denies rash. [] Neurologic: Denies headache, focal weakness or sensory changes. [] Endocrine: Denies polyuria or polydipsia. [] Lymphatic: Denies swollen glands. [] Psychiatric: Denies depression or anxiety. [] Current Medications Current Medications Current Medications Medications (Trade) Dose Ordered Sig/Mejia Start Time Stop Time Status Last Admin Dose Admin Fentanyl Citrate (Fentanyl 2ml Vial) 25 mcg PRN Q15MIN PRN 12/13/16 01:00 12/14/16 00:59 Haloperidol Lactate (Haldol) 5 mg STK-MED ONCE 12/13/16 00:00 12/13/16 00:01 DC Ketorolac Tromethamine (Toradol) 10 mg 1X ONCE 12/13/16 01:00 12/13/16 01:01 DC 12/13/16 02:02 10 MG Potassium Chloride/Sodium Chloride 1,000 ml @ 75 mls/hr 1X ONCE 12/13/16 01:00 12/13/16 14:19 12/13/16 02:00 75 MLS/HR Sodium Chloride 1,000 ml @ 1,000 mls/hr Q1H 12/13/16 00:00 12/13/16 00:59 DC 12/13/16 00:03 1,000 MLS/HR Allergies Allergies Allergies Coded Allergies Type Severity Reaction Last Updated Verified Penicillins Allergy Intermediate 10/12/16 Yes codeine Allergy Intermediate Itching. 02/26/16 Yes sulfamethoxazole Adverse Reaction Intermediate Causes Yeast infection. 02/26/16 Yes trimethoprim Adverse Reaction Intermediate Causes Yeast infection. 02/26/16 Yes Physical Exam Physical Exam Constitutional: Well developed, well nourished, uncomfortable secondary to pain and nausea, non-toxic appearance. [] HENT: Normocephalic, atraumatic, bilateral external ears normal, oropharynx moist, no oral exudates, nose normal. [] Eyes: PERRLA, EOMI, conjunctiva normal, no discharge. [] Neck: Normal range of motion, no tenderness, supple, no stridor. [] Cardiovascular:Heart rate regular rhythm, no murmur, S1, S2, rubs or gallops. [] Lungs & Thorax: Bilateral breath sounds clear to auscultation, no wheezing, rhonchi, rales. No chest tenderness or crepitus. [] Abdomen: Bowel sounds normal, soft, tenderness to palpation diffusely abdomen, periumbilical to lower quadrants especially, no rebound, rigidity, no guarding, no masses, no pulsatile masses. [] Skin: Warm, dry, no erythema, no rash. [] Back: No tenderness, no CVA tenderness. [] Extremities: No tenderness, no cyanosis, no clubbing, ROM intact, no edema. Negative Homans sign. [] Neurologic: Alert and oriented X 3, normal motor function, normal sensory function, no focal deficits noted. [] Psychologic: Affect normal, judgement normal, mood normal. [] Current Patient Data Vital Signs Vital Signs Date Time Temp Pulse Resp B/P (MAP) Pulse Ox O2 Delivery O2 Flow Rate FiO2 12/12/16 23:51 98.2 95 18 172/87 (115) 99 Room Air 98.2 Lab Values Laboratory Tests Test 12/12/16 22:54 12/12/16 23:39 12/12/16 23:50 12/13/16 00:05 POC Urine HCG, Qualitative Hcg negative (Negative) Urine Collection Type Unknown Urine Color Smiley Urine Clarity Clear Urine pH 5.5 Urine Specific [place] 1.020 Urine Protein 30 mg/dL (NEG-TRACE) Urine Glucose (UA) Negative mg/dL (NEG) Urine Ketones (Stick) Negative mg/dL (NEG) Urine Blood Negative (NEG) Urine Nitrite Negative (NEG) Urine Bilirubin Negative (NEG) Urine Urobilinogen Dipstick 0.2 mg/dL (0.2 mg/dL) Urine Leukocyte Esterase Negative (NEG) Urine RBC 1-2 /HPF (0-2) Urine WBC 1-4 /HPF (0-4) Urine Squamous Epithelial Cells Mod /LPF Urine Bacteria Few /HPF (0-FEW) Urine Mucus Marked /LPF Urine Opiates Screen Neg (NEG) Urine Methadone Screen Neg (NEG) Urine Barbiturates Neg (NEG) Urine Phencyclidine Screen Neg (NEG) Urine Amphetamine/Methamphetamine Neg (NEG) Urine Benzodiazepines Screen Neg (NEG) Urine Cocaine Screen Neg (NEG) Urine Cannabinoids Screen Pos (NEG) Urine Ethyl Alcohol Neg (NEG) White Blood Count 8.7 x10^3/uL (4.0-11.0) Red Blood Count 4.61 x10^6/uL (3.50-5.40) Hemoglobin 14.3 g/dL (12.0-15.5) Hematocrit 41.6 % (36.0-47.0) Mean Corpuscular Volume 90 fL (79-100) Mean Corpuscular Hemoglobin 31 pg (25-35) Mean Corpuscular Hemoglobin Concent 35 g/dL (31-37) Red Cell Distribution Width 17.2 % (11.5-14.5) H Platelet Count 335 x10^3/uL (140-400) Neutrophils (%) (Auto) 77 % (31-73) H Lymphocytes (%) (Auto) 16 % (24-48) L Monocytes (%) (Auto) 7 % (0-9) Eosinophils (%) (Auto) 1 % (0-3) Basophils (%) (Auto) 0 % (0-3) Neutrophils # (Auto) 6.6 x10^3uL (1.8-7.7) Lymphocytes # (Auto) 1.4 x10^3/uL (1.0-4.8) Monocytes # (Auto) 0.6 x10^3/uL (0.0-1.1) Eosinophils # (Auto) 0.1 x10^3/uL (0.0-0.7) Basophils # (Auto) 0.0 x10^3/uL (0.0-0.2) Sodium Level 139 mmol/L (136-145) Potassium Level 3.3 mmol/L (3.5-5.1) L Chloride Level 102 mmol/L (98-107) Carbon Dioxide Level 24 mmol/L (21-32) Anion Gap 13 (6-14) Blood Urea Nitrogen 12 mg/dL (7-20) Creatinine 0.9 mg/dL (0.6-1.0) Estimated GFR (Cockcroft-Gault) 85.7 BUN/Creatinine Ratio 13 (6-20) Glucose Level 117 mg/dL (70-99) H Calcium Level 10.3 mg/dL (8.5-10.1) H Total Bilirubin 1.4 mg/dL (0.2-1.0) H Aspartate Amino Transferase (AST) 26 U/L (15-37) Alanine Aminotransferase (ALT) 28 U/L (14-59) Alkaline Phosphatase 108 U/L (46-116) Total Protein 8.6 g/dL (6.4-8.2) H Albumin 4.3 g/dL (3.4-5.0) Albumin/Globulin Ratio 1.0 (1.0-1.7) Lipase 101 U/L (73-393) Serum Test, Qualitative Negative (NEG) Lactic Acid Level 1.8 mmol/L (0.4-2.0) Laboratory Tests 12/12/16 23:50 Laboratory Tests 12/12/16 23:50 EKG EKG ECG: Rhythm strip: Heart rate 80 bpm, sinus rhythm, no ectopy. As interpreted by me. [] Radiology/Procedures Radiology/Procedures Acute abdominal series: 3 view: Normal cardiopulmonary silhouette, no infiltrates, no effusions, no soft tissue or bone abdomen is identified, no free air, stool and bowel gas noted throughout the colon, no evidence of obstruction. As interpreted by me. [] Course & Med Decision Making Course & Med Decision Making Pertinent Labs and Imaging studies reviewed. (See chart for details) Patient with persistent vomiting, received Haldol in the emergency department, noted to have a UDS positive for cannabis. Patient's nausea significantly improved, although she continues to complain of some pain, she is resting more comfortably at this time. Patient's laboratory studies reveal a potassium of 3.3. No the cytosis, other electrolytes within normal limits, no evidence of infection. After discussion with patient, and Dr. Salas, her primary care provider, due to persistent vomiting, and concern for recurrent symptoms with dehydration and hypokalemia, will admit the patient for IV hydration and symptom management. Bridge orders entered per discussion. Dragon Disclaimer Dragon Disclaimer This electronic medical record was generated, in whole or in part, using a voice recognition dictation system. Departure Impression: Primary Impression: Hypokalemia Additional Impressions: Nausea and vomiting Abdominal pain Sarcoidosis Disposition: ADMITTED INPATIENT Admitting Physician: Ronna Salas Condition: IMPROVED Problem Qualifiers MARQUIS MUSE DO December 13, 2016 01:46
[2016-12-13] MEDS: IV NORMAL SALINE 1000ML BAG 1,000 ML IV SCH ×2 (02:30→10:30)
[2016-12-13] MEDS ORDERED: ONDANSETRON PF 4 MG/2 ML VIAL. IV PRN (02:30)
[2016-12-13] MEDS ORDERED: ACETAMINOPHEN 325 MG TABLET. PO PRN (02:30)
--- NOTE | 2016-12-13 03:29 | ACF ---
Admit Criteria Forms Admit Criteria Forms Admit Criteria Forms GASTROENTEROLOGY GRG Clinical Indications for Admission to Inpatient Care (Place 'X' for any and all applicable criteria): Hospital admission is needed for appropriate care of the patient because of ANY ONE of the following: [ ]I. Hemoperitoneum(7) [ ]II. Ascites requiring acute treatment indicated by ANY ONE of the following( 8)(9): [ ]a) Hemodynamic instability remaining after emergency or observation level care (as appropriate) [ ]b) Peritoneal signs present (eg, abdominal rigidity, rebound tenderness, absent bowel sounds) [ ]c) Tachypnea, Hypoxemia, or other respiratory symptoms remain after emergency or observation level care (as appropriate) [ ]d) Suspected infected ascites as indicated by ANY ONE of the following: [ ]i) Temperature greater than 100 degrees F (37.8 degrees C) [ ]ii) Abdominal pain or tenderness not relieved by paracentesis [ ]iii) Systemic signs of infection (eg, elevated WBC count, fever) [ ]iv) Ascitic fluid analysis consistent with infection ( eg, elevated WBC count): [ ]v) Vital sign abnormality [ ]III. Suspected acute intra-abdominal process indicated by ANY ONE of the following(1)(2)(3)(4)(5): [ ]a) Hemodynamic instability [ ]b) Peritoneal signs present (eg, abdominal rigidity, rebound tenderness, absent bowel sounds) [ ]c) Bowel obstruction suspected (eg, severe vomiting, abdominal distension) [ ]d) Suspected mesenteric ischemia or ischemic colitis(6) [ ]e) Other signs or symptoms of acute abdominal disease (eg, severe pain, free air): [ ]IV. Severe liver disease indicated by ANY ONE of the following(8)(9)(10)(11)( 12)(13)(14): [ ]a) Acute hepatitis (eg, transaminase level greater than 1000 IU/L) [ ]b) Acute elevation of prothrombin time to more than 50% above normal or INR greater than 1.5 [ ]c) Bilirubin greater than 20 mg/dL (342 micromoles/L) (15) [ ]d) New-onset or worsening hepatic encephalopathy [ ]e) Acute liver necrosis [ ]f) Vomiting or dehydration that is severe of persistent [ ]g) Hemodynamic instability due to liver disease [ ]h) Acute renal failure [ ]i) Hepatic abscess [ ]j) Dehydration that is severe or persistent [ ]k) Hepatic hydrothorax(21) [ ]l) Other indications of severe liver disease (eg, persistent fever , ingestion of hepatotoxin) [ ]V. Severe diarrhea indicated by ANY ONE of the following(17)(18)(19)(20)(21)( 22)(23): [ ]a) High fever or other high-risk infection situation [ ]b) Intractable bloody diarrhea (eg, more than 6 bloody stools per day) [ ]c) Suspected Clostridium difficile-associated diarrhea(24) [ ]d) Change in mental status that persists after emergency or observation level care (as appropriate) [ ]e) Severe dehydration (eg, greater than 9% loss of body weight in children) [ ]f) Inability to maintain hydration [ ]g) Peritoneal signs present (eg, abdominal rigidity, rebound tenderness, absent bowel sounds) [ ]h) Abdominal ischemia suspected(6) [ ]i) Hemodynamic instability that persists after emergency or observation level care (as appropriate) [ ]j) Severe electrolyte abnormalities requiring inpatient care [ ]k) Acute renal failure [ ]. Suspected toxic megacolon(5)(6) [ ]VII.Severe dysphagia indicated by ANY ONE of the following(25)(26): [ ]a) Suspected esophageal perforation or fistula(27) [ ]b) Suspected cause that requires inpatient care (eg, caustic ingestion, severe esophagitis) (28) [ ]c) Severe dehydration (eg, greater than 9% loss of body weight in children) [ ]d) Inability to manage secretions or maintain hydration [ ]e) Hemodynamic instability that persists after emergency or observation level care (as appropriate) [ ]f) Severe electrolyte abnormalities requiring inpatient care [ ]g) Acute renal failure [X]VIII.Vomiting and ANY ONE of the following (29)(30)(31)(32): [ ]a) High fever or other high-risk infection situation [ ]b) Change in mental status that persists after emergency or observation level care (as appropriate) [ ]c) Severe dehydration (e.g., greater than 9% loss of body weight in children) [ ]d) Peritoneal signs present (e.g., abdominal rigidity, rebound tenderness, absent bowel sounds) [ ]e) Hemodynamic instability that persists after emergency or observation level care (as appropriate) [ ]f) Severe electrolyte abnormalities requiring inpatient care [ ]g) Acute renal failure [ ]h) Bowel obstruction suspected (e.g., severe vomiting, abdominal distension) [X ]i) Vomiting that is severe or persistent after medical treatment [ ]IX. Significant dehydration indicated by ANY ONE of the following(23)(24)(25) [ ]a) Clinical findings of severe dehydration indicated by ANY ONE of the following: [ ]i) Acute loss of weight from baseline (5% of body weight in adults, 9% in pediatric patients) [ ]ii) Hemodynamic instability [ ]iii) Acute renal failure [ ]iv) Serum sodium greater than 150 mEq/L (mmol/L) [ ]b) Dehydration that is persistent indicated by ALL of the following: [ ]i) Oral rehydration therapy not tolerated or insufficient to adequately correct dehydration [ ]ii) Appropriate intravenous treatment (eg, fluids) does not readily correct dehydration hours of (ie, after 12 to 24 of treatment) [ ]X. Gastroparesis and ANY ONE of the following(37)(38)(39): [ ]a) Dehydration that is severe or persistent [ ]b) Severe electrolyte abnormalities requiring inpatient care [ ]c) Acute renal failure [ ]d) Vomiting that is severe or persistent [ ]XI. Complications of transplanted liver indicated by ANY ONE of the following (40)(41): [ ]a) Acute graft rejection requiring inpatient management (eg, intravenous immunosuppression)(42) [ ]b) Failure of transplanted liver as indicated by ANY ONE of the following: [ ]i) Acute hepatitis (eg, transaminase level greater than 1000 International Units per liter (IU/L)) [ ]ii) Acute elevation of prothrombin time to more than 50% above baseline or INR greater than 1.5 [ ]iii) Bilirubin greater than 20 mg/dL (342 micromoles/L) [ ]iv) New-onset or worsening hepatic encephalopathy [ ]v) Acute elevation of serum ammonia level (eg, greater than 210 mcg/dL (150 micromoles/L)) [ ]vi) Acute liver necrosis [ ]c) Infection requiring inpatient management (eg, Hemodynamic instability, need for intravenous antimicrobial treatment)(43)(44)(45)(46)(47)(48)(49)(50) [ ]d) Other complication of transplanted liver (eg, thrombosis, autoimmune hepatitis, variceal bleeding) requiring inpatient management(51)(52) [ ]XII Complications of transplanted pancreas indicated by ANY ONE of the following(53): [ ]a) Acute graft rejection requiring inpatient management (eg, intravenous immunosuppression)(42)(54) [ ]b) Failure of transplanted pancreas as indicated by ANY ONE of the following: [ ]i) Serum amylase greater than 3 times the upper limit of normal or baseline [ ]ii) Serum lipase greater than 3 times the upper limit of normal or baseline [ ]iii) Imaging findings consistent with pancreatic inflammation or necrosis [ ]c) Infection requiring inpatient management (eg, Hemodynamic instability, need for intravenous antimicrobial treatment)(43)(44)(45)(46)(47)(48)(49)(50) [ ]d) Other complication of transplanted liver (eg, thrombosis, autoimmune hepatitis, variceal bleeding) requiring inpatient management(51)(52) [ ]X. Gastroenterology condition and ALL of the following: [ ]a) Symptom or finding for which emergency and observation care have failed or are not considered appropriate (Also use General Criteria: Observation Care as appropriate) [ ]b) Presence of ANY ONE of the following: [ ]i) A General Admission Criteria [ ]ii) A Pediatric General Admission Criteria. The original [facility] content created by [employer] has been revised. The portions of the content which have been revised are identified through the use of italic text or in bold,and [facility] [employer] has neither reviewed nor approved the modified material. All other unmodified content is copyright [facility]. Please see references footnoted in the original [facility] [employer] edition 2016 JOANN GOMEZ December 13, 2016 03:29
[2016-12-13 03:33] VITALS: BP 109/67
[2016-12-13 07:00] VITALS: BP 90/51
[2016-12-13 07:01] VITALS: BP 102/73
[2016-12-13 07:02] VITALS: BP 97/67
--- NOTE | 2016-12-13 08:10 | RAD ---
Indication: Abdominal pain, nausea and vomiting. Technique: Abdominal series with PA chest radiograph contains 3 images. No comparison is available. Findings: The lungs are clear. The heart is not enlarged and there is no heart failure. There is no free air. There is no dilated bowel loop or air-fluid level. Bony structures are intact. Impression: No acute thoracic findings.
[2016-12-13] MEDS ORDERED: HYDROcodone/APAP 5/325MG 1 TAB TABLET PO PRN (10:45)
[2016-12-13] MEDS ORDERED: hydrOXYzine PAMOATE 25 MG CAPSULE PO PRN (10:45)
[2016-12-13 11:00] VITALS: BP 119/83
[2016-12-13] MEDS ORDERED: ONDA8TAB9 PO (11:19)
[2016-12-13] MEDS ORDERED: ALPR0.25 PO (11:19)
--- NOTE | 2016-12-13 11:40 | PDOC ---
Provider Note Provider Note H&P and discharge summary dictated. #[id number] FERNANDO FLOWER MD December 13, 2016 11:40
--- NOTE | 2016-12-13 22:29 | HP ---
ADMIT DATE: COMBINED HISTORY AND PHYSICAL AND DISCHARGE SUMMARY LOCATION: [id number] REASON FOR ADMISSION TO THE HOSPITAL: Nausea, vomiting. HISTORY OF PRESENT ILLNESS: The patient is a 36-year-old female. The patient has a history of sarcoidosis, was diagnosed 2 months ago. She had a biopsy of the liver, which was consistent with sarcoidosis and she also had lesions in the liver and the patient is on prednisone for sarcoidosis. The patient says she has been feeling anxious. She has nausea and vomiting, came to the Emergency Room. Potassium was low at 3.3. Was given IV fluids, was admitted overnight for observation and she is feeling better and wants to go home. PAST MEDICAL HISTORY: Sarcoidosis was diagnosed 2 months ago, GERD. PAST SURGICAL HISTORY: Had a biopsy of the liver. Had extensive workup including CT chest, abdomen and pelvis. She also had tonsillectomy. ALLERGIES: PENICILLIN, CODEINE, SULFA, TRIMETHOPRIM. MEDICATIONS AT HOME: She is taking prednisone 20 mg daily. PERSONAL HISTORY: Occasional marijuana. Denies smoking or alcohol. FAMILY HISTORY: Mother positive for sarcoidosis. REVIEW OF SYSTEMS: Nausea, vomiting, otherwise anxious. Rest of the 14 systems reviewed and negative. PHYSICAL EXAMINATION: GENERAL: Not in any distress. VITAL SIGNS: Temperature 98, pulse 64, respirations 18, blood pressure 109/67, 98% on room air. HEENT: Head is atraumatic. Pupils equal. Oral cavity: No congestion. NECK: Supple. CHEST: Symmetrical. LUNGS: Clear. ABDOMEN: Soft. CARDIOVASCULAR: S1, S2. EXTREMITIES: No calf tenderness, no edema. NEUROLOGIC: No focal deficit. Moving all extremities. LABORATORY DATA: Shows a white count of 8.7, hemoglobin 14, platelets 335. Electrolytes show sodium 139, potassium 3.3, chloride 102, bicarb 24, BUN 12, creatinine 0.9. LFTs were normal. test was negative. UA was negative. Toxicology positive for cannabinoid use. Abdominal series was negative. FINAL IMPRESSION: 1. Nausea and vomiting, possible gastroesophageal reflux disease. 2. Sarcoidosis, on prednisone, diagnosed 2 months ago. 3. Urine drug screen was positive for cannabinoid use. PLAN: At this time, was given fluids and potassium supplements and she is feeling better. She wants to go home. I recommend outpatient EGD. FERNANDO FLOWER MD DR: ALISHA/di JOB#: [id number] / [id number]
[2016-12-14] MEDS ORDERED: PANTOPRAZOLE 40 MG TABLET.DR. PO SCH (07:30)
== END 2016-12-13 12:02 | disposition home or self-care (01) | DRG 392 ==
LOC: ER 23:24 → 5 SOUTH 12-13 02:08
PROVIDERS: ADMIT Internal Medicine; ATTEND Internal Medicine
DX: K21.9 Gastro-esophageal reflux disease without esophagitis (principal); D86.9 Sarcoidosis, unspecified; E87.6 Hypokalemia
CPT/HCPCS: 36415; 74022; 80053; 81001; 81025; 83605; 83690; 84703; 85027; G0481; J1630; J1885; J3010; J3480; J7030

== ENCOUNTER 2017-03-13 07:41 | Emergency (ER) | payer OTHER ==
[~2017-03-13] VITALS: Ht 177.8 cm; Wt 79.8 kg
[~2017-03-13 07:41] MED LIST changes: +ALPR0.25 PO; +ONDA8TAB9 PO
--- NOTE | 2017-03-13 08:44 | PHYS DOC ---
Past Medical History Past Medical History: GERD Additional Past Medical Histor: SARCOIDOSIS Past Surgical History: Tonsillectomy Alcohol Use: None Drug Use: Marijuana Adult General Chief Complaint Chief Complaint: ABDOMINAL PAIN HPI HPI Patient is a 36 year old -Spanish female with a history of sarcoidosis who presents with nausea vomiting and abdominal pain. She states she is chronically on prednisone but stopped taking it 5 days ago secondary to gastritis and hasn't eaten drank since then. She denies any bloody vomit, or blood in her stools. She states this is same pain she gets every time with her prednisone use. She denies any fevers chills. She states last time toward all the GI cocktail helped a lot. She states the pain is not bad enough at this time for narcotic pain medicine. Review of Systems Review of Systems Constitutional: Denies fever or chills [] Eyes: Denies change in visual acuity, redness, or eye pain [] HENT: Denies nasal congestion or sore throat [] Respiratory: Denies cough or shortness of breath [] Cardiovascular: No additional information not addressed in HPI [] GI: Positive for abdominal pain, nausea, vomiting, denies any bloody stools or diarrhea [] : Denies dysuria or hematuria [] Musculoskeletal: Denies back pain or joint pain [] Integument: Denies rash or skin lesions [] Neurologic: Denies headache, focal weakness or sensory changes [] Endocrine: Denies polyuria or polydipsia [] Current Medications Current Medications Current Medications Medications (Trade) Dose Ordered Sig/Mejia Start Time Stop Time Status Last Admin Dose Admin Famotidine (Pepcid) 20 mg 1X ONCE 03/13/17 09:30 03/13/17 09:31 DC 03/13/17 09:25 20 MG Info (Do NOT chart on this entry -- for MONITORING) 1 each PRN DAILY PRN 03/13/17 14:00 03/15/17 13:59 Iohexol (Omnipaque 300 Mg/ml) 75 ml 1X ONCE 03/13/17 14:15 03/13/17 14:16 DC 03/13/17 14:11 75 ML Ketorolac Tromethamine (Toradol) 30 mg 1X ONCE 03/13/17 11:30 03/13/17 11:31 DC 03/13/17 11:18 30 MG Lorazepam (Ativan) 1 mg 1X ONCE 03/13/17 09:30 03/13/17 09:31 DC 03/13/17 09:26 1 MG Morphine Sulfate 2 mg PRN Q15MIN PRN 03/13/17 08:45 03/13/17 15:00 DC Multi-Ingredient Mouthwash/Gargle (Gi Cocktail Single Dose) 15 ml 1X ONCE 03/13/17 09:30 03/13/17 09:31 DC 03/13/17 09:24 15 ML Ondansetron HCl (Zofran) 4 mg 1X ONCE 03/13/17 09:00 03/13/17 09:01 DC 03/13/17 09:28 4 MG Sodium Chloride 1,000 ml @ 1,000 mls/hr 1X ONCE 03/13/17 11:30 03/13/17 12:29 DC 03/13/17 12:21 1,000 MLS/HR Allergies Allergies Allergies Coded Allergies Type Severity Reaction Last Updated Verified Penicillins Allergy Intermediate 10/12/16 Yes codeine Allergy Intermediate Itching. 02/26/16 Yes sulfamethoxazole Adverse Reaction Intermediate Causes Yeast infection. 02/26/16 Yes trimethoprim Adverse Reaction Intermediate Causes Yeast infection. 02/26/16 Yes Physical Exam Physical Exam Constitutional: Well developed, well nourished, no acute distress, non-toxic appearance. [] HENT: Normocephalic, atraumatic, bilateral external ears normal, oropharynx moist, no oral exudates, nose normal. [] Eyes: PERRLA, EOMI, conjunctiva normal, no discharge. [] Neck: Normal range of motion, no tenderness, supple, no stridor. [] Cardiovascular:Heart rate regular rhythm, no murmur [] Lungs & Thorax: Bilateral breath sounds clear to auscultation [] Abdomen: Bowel sounds normal, soft, no tenderness, no masses, no pulsatile masses. [] Skin: Warm, dry, no erythema, no rash. [] Back: No tenderness, no CVA tenderness. [] Extremities: No tenderness, no cyanosis, no clubbing, ROM intact, no edema. [] Neurologic: Alert and oriented X 3, normal motor function, normal sensory function, no focal deficits noted. [] Psychologic: Affect normal, judgement normal, mood normal. [] Current Patient Data Vital Signs Vital Signs Date Time Temp Pulse Resp B/P (MAP) Pulse Ox O2 Delivery O2 Flow Rate FiO2 03/13/17 14:00 92 23 114/67 (83) 98 Room Air 03/13/17 08:49 98.2 98.2 Lab Values Laboratory Tests Test 03/13/17 08:45 03/13/17 09:20 03/13/17 10:13 Urine Collection Type Unknown Urine Color Smiley Urine Clarity Clear Urine pH 6.0 Urine Specific Everetts 1.015 Urine Protein 30 mg/dL (NEG-TRACE) Urine Glucose (UA) Negative mg/dL (NEG) Urine Ketones (Stick) 40 mg/dL (NEG) Urine Blood Negative (NEG) Urine Nitrite Negative (NEG) Urine Bilirubin Negative (NEG) Urine Urobilinogen Dipstick 0.2 mg/dL (0.2 mg/dL) Urine Leukocyte Esterase Negative (NEG) Urine RBC 0 /HPF (0-2) Urine WBC 0 /HPF (0-4) Urine Bacteria 0 /HPF (0-FEW) Urine Mucus Marked /LPF Urine Opiates Screen Neg (NEG) Urine Methadone Screen Neg (NEG) Urine Barbiturates Neg (NEG) Urine Phencyclidine Screen Neg (NEG) Urine Amphetamine/Methamphetamine Neg (NEG) Urine Benzodiazepines Screen Neg (NEG) Urine Cocaine Screen Neg (NEG) Urine Cannabinoids Screen Pos (NEG) Urine Ethyl Alcohol Neg (NEG) White Blood Count 6.4 x10^3/uL (4.0-11.0) Red Blood Count 4.34 x10^6/uL (3.50-5.40) Hemoglobin 14.3 g/dL (12.0-15.5) Hematocrit 41.0 % (36.0-47.0) Mean Corpuscular Volume 95 fL (79-100) Mean Corpuscular Hemoglobin 33 pg (25-35) Mean Corpuscular Hemoglobin Concent 35 g/dL (31-37) Red Cell Distribution Width 14.3 % (11.5-14.5) Platelet Count 295 x10^3/uL (140-400) Neutrophils (%) (Auto) 61 % (31-73) Lymphocytes (%) (Auto) 27 % (24-48) Monocytes (%) (Auto) 9 % (0-9) Eosinophils (%) (Auto) 2 % (0-3) Basophils (%) (Auto) 1 % (0-3) Neutrophils # (Auto) 3.9 x10^3uL (1.8-7.7) Lymphocytes # (Auto) 1.7 x10^3/uL (1.0-4.8) Monocytes # (Auto) 0.6 x10^3/uL (0.0-1.1) Eosinophils # (Auto) 0.1 x10^3/uL (0.0-0.7) Basophils # (Auto) 0.1 x10^3/uL (0.0-0.2) Sodium Level 142 mmol/L (136-145) Potassium Level 3.4 mmol/L (3.5-5.1) L Chloride Level 103 mmol/L (98-107) Carbon Dioxide Level 26 mmol/L (21-32) Anion Gap 13 (6-14) Blood Urea Nitrogen 9 mg/dL (7-20) Creatinine 1.0 mg/dL (0.6-1.0) Estimated GFR (Cockcroft-Gault) 75.9 Glucose Level 113 mg/dL (70-99) H Calcium Level 9.7 mg/dL (8.5-10.1) Total Bilirubin 1.7 mg/dL (0.2-1.0) H Direct Bilirubin 0.3 mg/dL (0.0-0.2) H Aspartate Amino Transferase (AST) 19 U/L (15-37) Alanine Aminotransferase (ALT) 22 U/L (14-59) Alkaline Phosphatase 70 U/L (46-116) Creatine Kinase 131 U/L (26-192) Creatine Kinase MB (Mass) < 0.5 ng/mL (0.0-3.6) Creatine Kinase MB Relative Index % (0-4) Total Protein 7.7 g/dL (6.4-8.2) Albumin 4.5 g/dL (3.4-5.0) Lipase 80 U/L (73-393) Serum Test, Qualitative Negative (NEG) Laboratory Tests 03/13/17 09:20 Laboratory Tests 03/13/17 10:13 EKG EKG [] Radiology/Procedures Radiology/Procedures [facility] [address] [place] [address] IMAGING REPORT Signed PATIENT: SHEY SERRANO ACCOUNT: [id number] : 1980 LOCATION: ER AGE: 36 SEX: F EXAM STATUS: REG ER ORD. PHYSICIAN: JEFF LUONG MD REASON: RUQ PAIN, N/V PROCEDURE: ABDOMEN LTD Indication: Right upper quadrant pain with nausea and vomiting. Technique: Right upper quadrant ultrasound was performed. No comparison is available. Findings: Visualized pancreas is unremarkable. IVC is patent. Liver is normal in size and echogenicity. There is sludge within the gallbladder lumen. There is no wall thickening or pericholecystic fluid. Sonographic Rodriges sign is reported as negative. Common bile duct is within normal limits at 3 mm. Right kidney is without hydronephrosis or mass. Impression: Gallbladder sludge. No sonographic evidence of cholecystitis. DICTATED and SIGNED BY: ROMA JULIEN MD DATE: 03/13/17 1331 CC: JEFF LUONG MD; FERNANDO FLOWER MD ~ [place] [phone] IMAGING REPORT Signed PATIENT: SHEY SERRANO ACCOUNT: [id number] : 1980 LOCATION: ER AGE: 36 SEX: F EXAM STATUS: REG ER ORD. PHYSICIAN: JEFF LUONG MD REASON: PERIUMBILICAL PAIN,EXTENDING TO RLQ PROCEDURE: PELVIS COMPLETE Indication: Umbilical pain extending to right lower quadrant. Nauseated. Technique: Pelvic ultrasound was performed. No comparison is available. Findings: The appendix is probably visualized and appears normal in appearance. It measures 3 mm in diameter, blind-ending tip is probably visualized. Uterus measures 7.8 x 3.6 x 4.5 cm. It is retroverted. Endometrial stripe measures 5 mm. There is no uterine lesion. There is no free pelvic fluid. Both ovaries are visualized with color flow and waveform documented. 17 mm cyst or follicle is noted in the left ovary. Impression: 1. Normal appendix is probably visualized. 2. Normal ultrasound of the uterus and ovaries. DICTATED and SIGNED BY: ROMA JULIEN MD DATE: 03/13/17 1046 CC: JEFF LUONG MD; FERNANDO FLOWER MD ~ Impressions: Nausea vomiting Elevated total bilirubin Liver mass Sarcoidosis Course & Med Decision Making Course & Med Decision Making Pertinent Labs and Imaging studies reviewed. (See chart for details) Patient received IV fluids, Pepcid, GI cocktail, Toradol and feels better. She has elevated total bili which is higher than her previous visit. Obtained a right upper quadrant ultrasound in addition to CT scan abdomen pelvis. I did speak with regarding the findings. She's being discharged home and instructed follow-up with her hotel houseman and GI doctor. She is in stable condition this time. CT abdomen and pelvis did not show any acute abnormality's and putting the radiologist her lesions have improved from prior exam. Ultrasound of the pelvis was done inadvertently on this patient. It was ordered for another patient in another room and the aircraft systems technician excellently took this patient for the ultrasound. Dragon Disclaimer Dragon Disclaimer This electronic medical record was generated, in whole or in part, using a voice recognition dictation system. Departure Departure Impression: Primary Impression: Nausea & vomiting Disposition: 01 HOME, SELF-CARE Condition: STABLE Referrals: FERNANDO FLOWER MD (PCP) Patient Instructions: Nausea, Adult Additional Instructions: Your blood work showed elevated total bilirubin which is slightly worse and was the last time you were here. The ultrasound of your abdomen not show any acute abnormalities. Your feeling better after received IV fluids and antinausea meds. Your being discharged home. Please follow-up with . Return ER for severe pain, uncontrolled nausea vomiting, or other concerns. Problem Qualifiers Primary Impression: Nausea & vomiting Vomiting type: unspecified Vomiting Intractability: unspecified Qualified Codes: R11.2 - Nausea with vomiting, unspecified JEFF LUONG MD Mar 13, 2017 08:44
[2017-03-13] MEDS ORDERED: IV NORMAL SALINE 1000ML BAG 1,000 ML IV SCH (09:00)
[2017-03-13] MEDS ORDERED: ONDANSETRON PF 4 MG/2 ML VIAL. IV ONE (09:00)
[2017-03-13 09:16] LABS: BILIRUBIN,URINE NEGATIVE (NEG); GLUCOSE,URINE NEGATIVE (NEG); NITRITE,URINE NEGATIVE (NEG); PROTEIN,URINE 30 mg/dL (NEG-TRACE); UROBILINOGEN,URINE 0.2 mg/dL (0.2 mg/dL)
[2017-03-13 09:24] LABS: BARBITURATES NEG (NEG); BENZODIAZEPINES NEG (NEG); CANNABINOIDS POS (NEG); COCAINE NEG (NEG); METHADONE NEG (NEG); OPIATES NEG (NEG); PHENCYCLIDINE NEG (NEG)
[2017-03-13] MEDS: MORPHINE SULFATE 2 MG/ML DISP.SYRIN. IV/SQ PRN ×2 (09:26→09:37)
[2017-03-13] MEDS ORDERED: FAMOTIDINE 20 MG/2 ML VIAL IVP ONE (09:30)
[2017-03-13] MEDS ORDERED: LIDO:MAALOX:DONNATAL 1:1:1 15 ML SINGLE DOSE SWSW ONE (09:30)
[2017-03-13 09:45] LABS: BASO # 0.1 x10^3/uL (0.0-0.2); BASO % 1 % (0-3); EOS % 2 % (0-3); HEMOGLOBIN 14.3 g/dL (12.0-15.5); LYMPH # 1.7 x10^3/uL (1.0-4.8); LYMPH % 27 % (24-48); MEAN CORPUSCULAR HEMOGLOBIN 33 pg (25-35); MEAN CORPUSCULAR HGB CONC 35 g/dL (31-37); MEAN CORPUSCULAR VOLUME 95 fL (79-100); MONO % 9 % (0-9); NEUT % 61 % (31-73); PLATELET COUNT 295 x10^3/uL (140-400); RED BLOOD COUNT 4.34 x10^6/uL (3.50-5.40); RED CELL DISTRIBUTION WIDTH 14.3 % (11.5-14.5); WHITE BLOOD COUNT 6.4 x10^3/uL (4.0-11.0)
[2017-03-13 09:50] LABS: BACTERIA,URINE 0 /HPF (0-FEW); RBC,URINE 0 /HPF (0-2); WBC,URINE 0 /HPF (0-4)
--- NOTE | 2017-03-13 10:13 | EKG ---
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
[2017-03-13 10:50] LABS: CALCIUM 9.7 mg/dL (8.5-10.1); CKMB MASS < 0.5 ng/mL (0.0-3.6); CREATINE KINASE 131 U/L (26-192); GFR 75.9; POTASSIUM 3.4 mmol/L (3.5-5.1)
[2017-03-13 11:03] LABS: ALBUMIN 4.5 g/dL (3.4-5.0); DIRECT BILIRUBIN 0.3 mg/dL (0.0-0.2); TOTAL BILIRUBIN 1.7 mg/dL (0.2-1.0); TOTAL PROTEIN 7.7 g/dL (6.4-8.2)
[2017-03-13 11:21] LABS: NEG OBC SER NEG; POS OBC SER POS
[2017-03-13] MEDS ORDERED: KETOROLAC TROMETHAMINE 30 MG/ML INJ. IV ONE (11:30)
[2017-03-13] MEDS ORDERED: IV NORMAL SALINE 1000ML BAG 1,000 ML IV ONE (11:30)
--- NOTE | 2017-03-13 12:14 | RAD ---
Indication: Umbilical pain extending to right lower quadrant. Nauseated. Technique: Pelvic ultrasound was performed. No comparison is available. Findings: The appendix is probably visualized and appears normal in appearance. It measures 3 mm in diameter, blind-ending tip is probably visualized. Uterus measures 7.8 x 3.6 x 4.5 cm. It is retroverted. Endometrial stripe measures 5 mm. There is no uterine lesion. There is no free pelvic fluid. Both ovaries are visualized with color flow and waveform documented. 17 mm cyst or follicle is noted in the left ovary. Impression: 1. Normal appendix is probably visualized. 2. Normal ultrasound of the uterus and ovaries.
--- NOTE | 2017-03-13 13:35 | RAD ---
Indication: Right upper quadrant pain with nausea and vomiting. Technique: Right upper quadrant ultrasound was performed. No comparison is available. Findings: Visualized pancreas is unremarkable. IVC is patent. Liver is normal in size and echogenicity. There is sludge within the gallbladder lumen. There is no wall thickening or pericholecystic fluid. Sonographic Rodriges sign is reported as negative. Common bile duct is within normal limits at 3 mm. Right kidney is without hydronephrosis or mass. Impression: Gallbladder sludge. No sonographic evidence of cholecystitis.
[2017-03-13 14:00] VITALS: BP 114/67
[2017-03-13] MEDS ORDERED: CONTRAST GIVEN MC PRN (14:00)
[2017-03-13] MEDS ORDERED: IOHEXOL 300 MG/ML 75 ML VIAL IV ONE (14:15)
--- NOTE | 2017-03-13 15:23 | RAD ---
Indication: Abdominal pain and nausea. Technique: Axial images and coronal and sagittal reformatted images are provided. 75 mL of intravenous Omnipaque 300 was administered without complication. Comparison is a recent ultrasound from today and a CT from October 12, 2016. One or more of the following individualized dose reduction techniques were utilized for this examination: 1. Automated exposure control 2. Adjustment of the mA and/or kV according to patient size 3. Use of iterative reconstruction technique Findings: The lung bases are clear. There is no pleural effusion. The heart is not enlarged. The innumerable low-density lesions noted throughout the liver on prior study have mostly resolved. A few subcentimeter low-density lesions remain. It appears this patient had a percutaneous liver biopsy, please correlate with those results. Gallbladder is unremarkable. Spleen is not enlarged. Pancreas and adrenals are unremarkable. Kidneys are symmetrically perfused. Aorta is normal caliber. There is no small bowel obstruction or mural thickening. Colon is grossly unremarkable. Lack of oral contrast limits evaluation of bowel. Normal appendix is noted. Bladder is unremarkable. Probable cyst or follicle in the left ovary is noted, 2.5 cm in size. Uterus is retroverted. There is no free pelvic fluid. There are calcified phleboliths. Impression: 1. No acute abdominal findings. 2. The innumerable low-density lesions noted previously within the liver and spleen have resolved nearly completely. A few low-density lesions within the liver remain. Please correlate with results of the liver biopsy. Additional history available after completion of the dictation. Per the ER physician, patient has a history of sarcoidosis, which would explain the previously noted liver and splenic lesions that have nearly completely resolved.
== END 2017-03-13 15:25 | disposition home or self-care (01) ==
LOC: ER 07:41
DX: R11.2 Nausea with vomiting, unspecified (principal); R10.11 Right upper quadrant pain; K21.9 Gastro-esophageal reflux disease without esophagitis; Z79.52 Long term (current) use of systemic steroids; D86.9 Sarcoidosis, unspecified; Z88.0 Allergy status to penicillin; Z88.2 Allergy status to sulfonamides; Z88.5 Allergy status to narcotic agent; Z88.8 Allergy status to other drugs, medicaments and biological substances
CPT/HCPCS: 36415; 74177; 76705; 76856; 80048; 80076; 80307; 81001; 82553; 83690; 84703; 85025; 93005; 96361; 96374; 96375; 99285; J1885; J2060; J2405; J7030; Q9967; S0028; J2270; G0479

== ENCOUNTER 2019-06-29 03:03 | Emergency (ER) | payer OTHER ==
[~2019-06-29] VITALS: Ht 175.3 cm; Wt 73.5 kg
--- NOTE | 2019-06-29 03:19 | PHYS DOC ---
Past Medical History Past Medical History: GERD Additional Past Medical Histor: SARCOIDOSIS Past Surgical History: Tonsillectomy Alcohol Use: None Drug Use: None Adult General Chief Complaint Chief Complaint: ANXIETY/PANIC ATTACK HPI HPI 38yo female presents to the emergency Department with complaints of anxiety, nausea, vomiting, abdominal discomfort. Patient denies any fever or diarrhea however states she has been dealing with significant amount of stress. She states she takes Lexapro daily. Patient describes epigastric discomfort no radiation of the pain. Nothing makes worse, nothing makes better. Patient states she has had ongoing symptoms since 10pm last night. Review of Systems Review of Systems Constitutional: Denies fever or chills [] Respiratory: Denies cough or shortness of breath [] Cardiovascular: No additional information not addressed in HPI [] GI: + abdominal pain, nausea, vomiting, no bloody stools or diarrhea [] : Denies dysuria or hematuria [] Musculoskeletal: Denies back pain or joint pain [] All other systems were reviewed and found to be within normal limits, except as documented in this note. Current Medications Current Medications Current Medications Medications (Trade) Dose Ordered Sig/Mejia Start Time Stop Time Status Last Admin Dose Admin Lorazepam (Ativan Inj) 1 mg 1X ONCE 06/29/19 03:30 06/29/19 03:32 DC 06/29/19 03:30 1 MG Ondansetron HCl (Zofran) 4 mg 1X ONCE 06/29/19 03:30 06/29/19 03:32 DC 06/29/19 03:30 4 MG Allergies Allergies Allergies Coded Allergies Type Severity Reaction Last Updated Verified Penicillins Allergy Intermediate 10/12/16 Yes codeine Allergy Intermediate Itching. 02/26/16 Yes sulfamethoxazole Adverse Reaction Intermediate Causes Yeast infection. 02/26/16 Yes trimethoprim Adverse Reaction Intermediate Causes Yeast infection. 02/26/16 Yes Physical Exam Physical Exam Constitutional: Well developed, well nourished, no acute distress, non-toxic appearance. [] HENT: Normocephalic, atraumatic, bilateral external ears normal, oropharynx moist, no oral exudates, nose normal. [] Eyes: PERRLA, EOMI, conjunctiva normal, no discharge. [] Cardiovascular:Heart rate regular rhythm, no murmur [] Lungs & Thorax: Bilateral breath sounds clear to auscultation [] Abdomen: Bowel sounds normal, soft, epigastric tenderness, no masses, no pulsatile masses. [] Skin: Warm, dry, no erythema, no rash. [] Back: No tenderness, no CVA tenderness. [] Extremities: No tenderness, no edema. [] Neurologic: Alert and oriented X 3, no focal deficits noted. [] Psychologic: Affect normal, judgement normal, mood normal. [] Current Patient Data Vital Signs Vital Signs Date Time Temp Pulse Resp B/P (MAP) Pulse Ox O2 Delivery O2 Flow Rate FiO2 06/29/19 05:15 66 20 102/69 (80) 99 Room Air 06/29/19 03:07 98.4 98.4 Lab Values Laboratory Tests Test 06/29/19 03:25 White Blood Count 5.5 x10^3/uL (4.0-11.0) Red Blood Count 3.94 x10^6/uL (3.50-5.40) Hemoglobin 12.9 g/dL (12.0-15.5) Hematocrit 37.5 % (36.0-47.0) Mean Corpuscular Volume 95 fL (79-100) Mean Corpuscular Hemoglobin 33 pg (25-35) Mean Corpuscular Hemoglobin Concent 34 g/dL (31-37) Red Cell Distribution Width 13.2 % (11.5-14.5) Platelet Count 330 x10^3/uL (140-400) Neutrophils (%) (Auto) 65 % (31-73) Lymphocytes (%) (Auto) 24 % (24-48) Monocytes (%) (Auto) 9 % (0-9) Eosinophils (%) (Auto) 1 % (0-3) Basophils (%) (Auto) 1 % (0-3) Neutrophils # (Auto) 3.6 x10^3/uL (1.8-7.7) Lymphocytes # (Auto) 1.3 x10^3/uL (1.0-4.8) Monocytes # (Auto) 0.5 x10^3/uL (0.0-1.1) Eosinophils # (Auto) 0.1 x10^3/uL (0.0-0.7) Basophils # (Auto) 0.1 x10^3/uL (0.0-0.2) Sodium Level 141 mmol/L (136-145) Potassium Level 3.7 mmol/L (3.5-5.1) Chloride Level 104 mmol/L (98-107) Carbon Dioxide Level 25 mmol/L (21-32) Anion Gap 12 (6-14) Blood Urea Nitrogen 9 mg/dL (7-20) Creatinine 0.9 mg/dL (0.6-1.0) Estimated GFR (Cockcroft-Gault) 84.8 BUN/Creatinine Ratio 10 (6-20) Glucose Level 107 mg/dL (70-99) H Calcium Level 9.4 mg/dL (8.5-10.1) Total Bilirubin 1.6 mg/dL (0.2-1.0) H Aspartate Amino Transferase (AST) 17 U/L (15-37) Alanine Aminotransferase (ALT) 16 U/L (14-59) Alkaline Phosphatase 62 U/L (46-116) Total Protein 8.0 g/dL (6.4-8.2) Albumin 4.7 g/dL (3.4-5.0) Albumin/Globulin Ratio 1.4 (1.0-1.7) Lipase 92 U/L (73-393) Laboratory Tests 06/29/19 03:25 Laboratory Tests 06/29/19 03:25 EKG EKG [] Radiology/Procedures Radiology/Procedures [] Course & Med Decision Making Course & Med Decision Making Pertinent Labs and Imaging studies reviewed. (See chart for details) []38yo female presents to the emergency Department with complaints of anxiety, nausea, vomiting, abdominal discomfort. Patient denies any fever or diarrhea however states she has been dealing with significant amount of stress. She states she takes Lexapro daily. Patient describes epigastric discomfort no radiation of the pain. Nothing makes worse, nothing makes better. Patient states she has had ongoing symptoms since 10pm last night. Labs reviewed Patient resting comfortably at this time after zofran/ativan Discussed return precautions Zofran rx provided at discharge Dragon Disclaimer Dragon Disclaimer This electronic medical record was generated, in whole or in part, using a voice recognition dictation system. Departure Departure Impression: Primary Impression: Anxiety Additional Impression: Nausea & vomiting Disposition: HOME, SELF-CARE Condition: IMPROVED Referrals: FERNANDO FLOWER MD (PCP) Patient Instructions: Anxiety and Panic Attacks, [id number], Nausea and Vomiting, [id number] Additional Instructions: Recommend follow up with PCP 3 - 5 days Return to the ER with worsening symptoms, intractable pain, fever, altered mental status Tylenol/Motrin as needed for pain Rx provided for zofran (treatment of nausea/vomiting) Scripts Ondansetron Hcl (ZOFRAN) 4 Mg Tablet 1 TAB PO PRN Q6-8HRS for nausea, #12 TAB Prov: SUSANA SIDDIQUI MD 06/29/19 Problem Qualifiers Additional Impression: Nausea & vomiting Vomiting type: unspecified Vomiting Intractability: unspecified Qualified Codes: R11.2 - Nausea with vomiting, unspecified SUSANA SIDDIQUI MD Jun 29, 2019 03:19
[2019-06-29] MEDS ORDERED: ONDANSETRON PF 4 MG/2 ML VIAL. IV ONE (03:30)
[2019-06-29 03:37] LABS: BASO # 0.1 x10^3/uL (0.0-0.2); BASO % 1 % (0-3); EOS # 0.1 x10^3/uL (0.0-0.7); EOS % 1 % (0-3); HEMATOCRIT 37.5 % (36.0-47.0); HEMOGLOBIN 12.9 g/dL (12.0-15.5); LYMPH # 1.3 x10^3/uL (1.0-4.8); LYMPH % 24 % (24-48); MEAN CORPUSCULAR HEMOGLOBIN 33 pg (25-35); MEAN CORPUSCULAR HGB CONC 34 g/dL (31-37); MEAN CORPUSCULAR VOLUME 95 fL (79-100); MONO # 0.5 x10^3/uL (0.0-1.1); MONO % 9 % (0-9); NEUT # 3.6 x10^3/uL (1.8-7.7); NEUT % 65 % (31-73); PLATELET COUNT 330 x10^3/uL (140-400); RED BLOOD COUNT 3.94 x10^6/uL (3.50-5.40); RED CELL DISTRIBUTION WIDTH 13.2 % (11.5-14.5); WHITE BLOOD COUNT 5.5 x10^3/uL (4.0-11.0)
[2019-06-29 03:40] LABS: CALCIUM 9.4 mg/dL (8.5-10.1); CREATININE 0.9 mg/dL (0.6-1.0); GFR 84.8; POTASSIUM 3.7 mmol/L (3.5-5.1)
[2019-06-29 03:49] LABS: ALBUMIN 4.7 g/dL (3.4-5.0); ALBUMIN/GLOBULIN RATIO 1.4 (1.0-1.7); TOTAL BILIRUBIN 1.6 mg/dL (0.2-1.0)
[2019-06-29] MEDS ORDERED: ONDA4TAB7 PO (04:20)
[2019-06-29 05:15] VITALS: BP 102/69
[2019-07-03] MEDS ORDERED: LEXAPRO5 MG PO (23:40)
[2019-07-03] MEDS ORDERED: PRED1TAB3 PO (23:40)
== END 2019-06-29 05:20 | disposition home or self-care (01) ==
LOC: ER 03:03
DX: R11.2 Nausea with vomiting, unspecified (principal); F41.9 Anxiety disorder, unspecified; R10.13 Epigastric pain; K21.9 Gastro-esophageal reflux disease without esophagitis; Z88.0 Allergy status to penicillin; Z88.1 Allergy status to other antibiotic agents; Z88.2 Allergy status to sulfonamides; Z88.5 Allergy status to narcotic agent
CPT/HCPCS: 36415; 80053; 83690; 85025; 96374; 96375; 99284; J2060; J2405

== ENCOUNTER 2019-07-09 03:22 | Emergency (ER) | payer OTHER ==
[~2019-07-09] VITALS: Ht 172.7 cm; Wt 73.9 kg
[~2019-07-09 03:22] MED LIST changes: +CIPR500T94 PO; +LEXAPRO5 MG PO; +ONDA4TAB7 PO; +PANT20TA2 PO; +PRED1TAB3 PO
[2019-07-09] MEDS ORDERED: ONDANSETRON ODT 4 MG TAB.RAPDIS. PO ONE (04:15)
[2019-07-09 04:21] LABS: BILIRUBIN,URINE NEGATIVE (NEG); CLARITY,URINE CLEAR; COLOR,URINE YELLOW; NITRITE,URINE NEGATIVE (NEG); PH,URINE 8.5; PROTEIN,URINE 30 mg/dL (NEG-TRACE)
[2019-07-09 04:28] LABS: SQUAMOUS EPITHELIAL CELL,UR MOD /LPF
[2019-07-09 04:29] LABS: AMORPHOUS SEDIMENT,UR PRESENT /HPF; BACTERIA,URINE FEW /HPF (0-FEW); RBC,URINE 0 /HPF (0-2)
--- NOTE | 2019-07-09 04:41 | PHYS DOC ---
Past Medical History Past Medical History: Anxiety, GERD Additional Past Medical Histor: SARCOIDOSIS Past Surgical History: Tonsillectomy Alcohol Use: None Drug Use: None Adult General Chief Complaint Chief Complaint: ANXIETY/PANIC ATTACK HPI HPI 38-year-old female presents to the emergency department with severe anxiety. This is her third visit in the emergency department. She was recently discharged from this facility approximately 2 days ago. She denies any SI, HI, age, VH however has profound anxiety. She states she woke up around midnight unable to control her anxiety, she was having chest pain, hyperventilating, back pain, tearful. Upon emergency department evaluation patient was unable to answer questions however became very agitated with continued asking of questions. Patient states she has seen a psychiatrist in the past however not recently. Unknown her exact triggers Review of Systems Review of Systems Constitutional: Denies fever or chills [] Eyes: Denies change in visual acuity, redness, or eye pain [] HENT: Denies nasal congestion or sore throat [] Respiratory: Denies cough or shortness of breath [] Cardiovascular: No additional information not addressed in HPI [] GI: Denies abdominal pain, nausea, vomiting, bloody stools or diarrhea [] : Denies dysuria or hematuria [] Musculoskeletal: Denies back pain or joint pain [] Integument: Denies rash or skin lesions [] Neurologic: Denies headache, focal weakness or sensory changes [] Endocrine: Denies polyuria or polydipsia [] All other systems were reviewed and found to be within normal limits, except as documented in this note. Current Medications Current Medications Current Medications Medications (Trade) Dose Ordered Sig/Mejia Start Time Stop Time Status Last Admin Dose Admin Hydroxyzine HCl (Vistaril Im) 25 mg 1X ONCE 07/09/19 05:30 07/09/19 05:31 UNV Lorazepam (Ativan Inj) 1 mg 1X ONCE 07/09/19 04:15 07/09/19 04:29 DC 07/09/19 04:17 1 MG Ondansetron HCl (Zofran Odt) 4 mg 1X ONCE 07/09/19 04:15 07/09/19 04:29 DC 07/09/19 04:17 4 MG Allergies Allergies Allergies Coded Allergies Type Severity Reaction Last Updated Verified Penicillins Allergy Intermediate 10/12/16 Yes codeine Allergy Intermediate Itching. 02/26/16 Yes sulfamethoxazole Adverse Reaction Intermediate Causes Yeast infection. 02/26/16 Yes trimethoprim Adverse Reaction Intermediate Causes Yeast infection. 02/26/16 Yes Physical Exam Physical Exam Constitutional: anxious/agitation/tearful. [] HENT: Normocephalic, atraumatic, bilateral external ears normal, oropharynx moist, no oral exudates, nose normal. [] Eyes: PERRLA, EOMI, conjunctiva normal, no discharge. [] Cardiovascular: tachycardia Lungs & Thorax: Bilateral breath sounds clear to auscultation [] Abdomen: Bowel sounds normal, soft, no tenderness, no masses, no pulsatile masses. [] Skin: Warm, dry, no erythema, no rash. [] Back: CVA tenderness Extremities: No tenderness,no edema. [] Neurologic: Alert and oriented X 3, no focal deficits noted. [] Psychologic: Affect normal, judgement normal, mood normal. [] Current Patient Data Vital Signs Vital Signs Date Time Temp Pulse Resp B/P (MAP) Pulse Ox O2 Delivery O2 Flow Rate FiO2 07/09/19 03:55 98.3 99 28 120/81 (94) 99 Room Air 98.3 Lab Values Laboratory Tests Test 07/09/19 03:30 Urine Collection Type Unknown Urine Color Yellow Urine Clarity Clear Urine pH 8.5 Urine Specific [place] 1.015 Urine Protein 30 mg/dL (NEG-TRACE) Urine Glucose (UA) Negative mg/dL (NEG) Urine Ketones (Stick) >=80 mg/dL (NEG) Urine Blood Negative (NEG) Urine Nitrite Negative (NEG) Urine Bilirubin Negative (NEG) Urine Urobilinogen Dipstick 1.0 mg/dL (0.2 mg/dL) Urine Leukocyte Esterase Negative (NEG) Urine RBC 0 /HPF (0-2) Urine WBC 5-10 /HPF (0-4) Urine Squamous Epithelial Cells Mod /LPF Urine Amorphous Sediment Present /HPF Urine Bacteria Few /HPF (0-FEW) Urine Mucus Marked /LPF EKG EKG [] Radiology/Procedures Radiology/Procedures [] Course & Med Decision Making Course & Med Decision Making Pertinent Labs and Imaging studies reviewed. (See chart for details) []38-year-old female presents to the emergency department with severe anxiety. This is her third visit in the emergency department. She was recently discharged from this facility approximately 2 days ago. She denies any SI, HI, age, VH however has profound anxiety. She states she woke up around midnight unable to control her anxiety, she was having chest pain, hyperventilating, back pain, tearful. Upon emergency department evaluation patient was unable to answer questions however became very agitated with continued asking of questions. Patient states she has seen a psychiatrist in the past however not recently. Unknown her exact triggers Ativan 1mg IM/Zofran 4mg IM PAT assessment reviewed with Shivani, early breastfeeding care specialist - resources provided Vistaril 50mg IM x 1 Recommend establishing care with psychiatry to help with patient's underlying anxiety and triggers Discussed use of vistaril po along with lexapro daily Patient remains tearful however do not feel she needs to be admitted for this Dragon Disclaimer Dragon Disclaimer This electronic medical record was generated, in whole or in part, using a voice recognition dictation system. Departure Departure Impression: Primary Impression: Anxiety Disposition: 01 HOME, SELF-CARE Condition: IMPROVED Referrals: FERNANDO FLOWER MD (PCP) Patient Instructions: Anxiety and Panic Attacks, [id number] Additional Instructions: Recommend follow up with PCP 3 - 5 days Return to the ER with worsening symptoms, intractable pain, fever, altered mental status Tylenol/Motrin as needed for pain Hydroxyzine rx provided Continue lexapro Cipro rx provided x 3 days Scripts Hydroxyzine Pamoate (VISTARIL) 50 Mg Capsule 1 CAP PO TID, #90 CAP 2 Refills Prov: SUSANA SIDDIQUI MD 07/09/19 Ciprofloxacin Hcl (CIPRO) 250 Mg Tablet 2 TAB PO BID for infection for 3 Days, #12 TAB Prov: SUSANA SIDDIQUI MD 07/09/19 SUSANA SIDDIQUI MD Jul 09, 2019 04:41
[2019-07-09] MEDS ORDERED: CIPR250T30 PO (05:36)
[2019-07-09] MEDS ORDERED: HYDR50CA PO (05:36)
[2019-07-09] MEDS ORDERED: hydrOXYzine IM 50 MG/ML VIAL IM ONE ×2 (05:45)
[2019-07-09 05:58] VITALS: BP 116/73
== END 2019-07-09 06:15 | disposition home or self-care (01) ==
LOC: ER 03:22
DX: F41.9 Anxiety disorder, unspecified (principal); R07.89 Other chest pain; R45.1 Restlessness and agitation; K21.9 Gastro-esophageal reflux disease without esophagitis; Z88.0 Allergy status to penicillin; Z88.1 Allergy status to other antibiotic agents; Z88.2 Allergy status to sulfonamides; Z88.5 Allergy status to narcotic agent
CPT/HCPCS: 81001; 87086; 96372; 99284; J2060; J3410; Q0162

== ENCOUNTER 2021-03-05 19:34 | Emergency (ER) | payer OTHER ==
[~2021-03-05 19:34] MED LIST changes: +CIPR250T30 PO; +HYDR50CA PO
[2021-03-05 20:00] VITALS: BP 108/76
== END 2021-03-05 22:05 | disposition left against medical advice (07) ==
LOC: ER 19:34
DX: U07.1 COVID-19 (principal); Z53.21 Procedure and treatment not carried out due to patient leaving prior to being seen by health care provider

== ENCOUNTER 2021-03-06 04:40 | Emergency (ER) | payer OTHER | END 2021-03-06 05:00 | disposition left against medical advice (07) | LOC: ER 04:40 | DX: R07.9 Chest pain, unspecified (principal); Z53.21 Procedure and treatment not carried out due to patient leaving prior to being seen by health care provider ==